=== PATIENT | female | born 1950 | race Caucasian/White ===

== ENCOUNTER 2017-04-07 11:00 | Emergency (ER) | payer MEDICARE ==
--- NOTE | 2017-04-07 13:07 | RAD ---
THREE VIEWS OF THE RIGHT HAND: DTAE: 04/07/17. COMPARISON: None. HISTORY: Fall, right hand pain, bruising. FINDINGS: There is prominent degenerative change involving the 2nd and 3rd distal interphalangeal joints with p rominent joint space narrowing and osteophyte formation. There is prominent degenerative change at t he carpometacarpal joint and the interphalangeal joint of the thumb as well. There is no displaced fracture or evidence of dislocation seen. There is soft tissue swelling seen a long the dorsal aspect of the hand near the region of the metacarpal heads. IMPRESSION: Soft tissue swelling, degenerative joint disease. No acute fracture or dislocation noted. POS: [facility]
--- NOTE | 2017-04-07 14:27 | CT ---
NONCONTRAST CT HEAD: DATE: 04/07/17. HISTORY: Head injury and right hand pain after falling yesterday. COMPARISON: None available. FINDINGS: There are scattered hypodensities seen throughout the periventricular white matter which are nonspeci fic but likely attributable to chronic small-vessel ischemic changes. There is no evidence of an acu te cortical infarction, hemorrhage, mass effect, or midline shift. There is cerebral volume loss wit h prominence of the bifrontal extraaxial spaces which is most likely attributable to volume loss. Th ere is mild cerebellar volume loss also present. No calvarial fracture is identified. Visualized paranasal sinuses and mastoid air cells are clear. There is osseous prominence of the inner table of the right anterior frontal bone. However, this ap pears contiguous with the diploic space and is probably related to an osseous excrescence as opposed to a calcified meningioma. IMPRESSION: 1. No acute intracranial abnormality is demonstrated. 2. Chronic small-vessel ischemic changes and cerebral as well as cerebellar volume loss. POS: [facility]
== END 2017-04-07 12:59 | disposition home or self-care (01) ==
LOC: ERS 11:00
DX: S60.221A Contusion of right hand, initial encounter (principal); S00.83XA Contusion of other part of head, initial encounter; K21.9 Gastro-esophageal reflux disease without esophagitis; E11.9 Type 2 diabetes mellitus without complications; E78.5 Hyperlipidemia, unspecified; Z79.82 Long term (current) use of aspirin; Z79.84 Long term (current) use of oral hypoglycemic drugs; Z79.899 Other long term (current) drug therapy; W10.9XXA Fall (on) (from) unspecified stairs and steps, initial encounter
CPT/HCPCS: 70450

== ENCOUNTER 2017-06-17 16:44 | Outpatient (CLI) | payer MEDICARE ==
--- NOTE | 2017-06-17 16:59 | RAD ---
PA AND LATERAL CHEST: History: Cough, congestion. IMPRESSION: No acute cardiopulmonary abnormality. The examination is not appreciably changed from a comparison da eric 09-20-14. POS: [facility]
== END 2017-06-17 16:45 | disposition home or self-care (01) ==
LOC: SCSRAD 16:44
PROVIDERS: ATTEND Nurse Practitioner Family
DX: J40 Bronchitis, not specified as acute or chronic (principal)
CPT/HCPCS: 71046

== ENCOUNTER 2017-07-02 10:10 | Outpatient (CLI) | payer MEDICARE | END 2017-07-02 10:11 | disposition home or self-care (01) | LOC: BICMAMMO 10:10 | PROVIDERS: ATTEND Internal Medicine Hematology & Oncology | DX: C50.919 Malignant neoplasm of unspecified site of unspecified female breast (principal); N95.9 Unspecified menopausal and perimenopausal disorder | CPT/HCPCS: 77080 ==

== ENCOUNTER 2017-10-18 23:51 | Emergency (ER) | payer MEDICARE ==
[2017-10-19 00:52] LABS: #Basophils 0.1 thou/uL (0.0-0.2); #Eosinphils 0.1 thou/uL (0.0-0.7); #Lymphocytes 2.2 thou/uL (1.20-3.40); #Monocytes 0.6 thou/uL (0.11-0.59); #Neutrophils 4.5 thou/uL (1.40-6.50); %Eosinophils 1.3 % (0.0-10.0); %Monocytes 7.9 % (0.0-10.0); %Neutrophils 60.8 % (42.0-75.0); Hemoglobin 14.4 g/dL (12.0-16.0); Mean Corpuscular HGB CONC 35.8 g/dL (32.0-36.0); Mean Corpuscular Hemoglobin 32.7 pg (27.0-31.0); Mean Corpuscular Volume 91.4 fl (81.0-99.0); Mean Platelet Volume 7.7 fL (7.4-10.4); Platelet Count 214 thou/uL (130-400); RBC Distribution Width 11.2 % (11.5-14.5); Red Blood Cell (RBC) Count 4.39 mill/uL (4.20-5.40); White Blood Cell (WBC) Count 7.4 thou/uL (4.8-10.8)
[2017-10-19 01:14] LABS: ALT (SGPT) 29 U/L (8-55); AST (SGOT) 21 U/L (5-34); Albumin 4.5 g/dL (3.4-4.8); Alkaline Phosphatase 70 U/L (40-150); Anion Gap 15 mmol/L (10-20); BUN (Urea Nitrogen) 20 mg/dL (9.8-20.1); Bilirubin, Total 0.3 mg/dL (0.2-1.2); CK (CPK) 75 U/L (29-168); Calc. Creatinine Clearance 0 mL/min (70-130); Calcium 10.8 mg/dL (7.8-10.44); Carbon Dioxide 24 mmol/L (23-31); Chloride 105 mmol/L (98-107); Estimated GFR-MDRD 61; Globulin 2.7 g/dL (2.4-3.5); Glucose 232 mg/dL (80-115); Potassium 4.1 mmol/L (3.5-5.1); Protein, Total 7.2 g/dL (6.0-8.3); Sodium 140 mmol/L (136-145)
[2017-10-19 01:24] LABS: CKMB 1.4 ng/mL (0-6.6); Troponin I Less than 0.010 ng/mL (< 0.028)
--- NOTE | 2017-10-19 09:42 | RAD ---
CHEST 2 VIEWS: HISTORY: Chest pain. COMPARISON: 06/17/17. FINDINGS: Cardiac silhouette and pulmonary vasculature are unremarkable. Mediastinum midline. No lobar consol idation, pneumothorax, or pleural fluid. Degenerative changes thoracic spine. IMPRESSION: No active cardiopulmonary abnormalities are demonstrated. POS: [facility]
== END 2017-10-19 04:29 | disposition home or self-care (01) ==
LOC: ERS 23:51
DX: R00.2 Palpitations (principal); K21.9 Gastro-esophageal reflux disease without esophagitis; E78.5 Hyperlipidemia, unspecified; I10 Essential (primary) hypertension
CPT/HCPCS: 36415; 71046; 80053; 82550; 82553; 84484; 85025; 93005

== ENCOUNTER 2017-12-30 08:21 | Outpatient (CLI) | payer MEDICARE | END 2017-12-30 08:22 | disposition home or self-care (01) | LOC: BICMAMMO 08:21 | PROVIDERS: ATTEND Internal Medicine Hematology & Oncology | DX: Z08 Encounter for follow-up examination after completed treatment for malignant neoplasm (principal); Z85.3 Personal history of malignant neoplasm of breast; Z80.3 Family history of malignant neoplasm of breast | CPT/HCPCS: 77066; G0279 ==

== ENCOUNTER 2019-04-04 09:13 | Emergency (ER) | payer MEDICARE ==
[2019-04-04 10:01] LABS: #Eosinphils 0.1 thou/uL (0.0-0.7); #Lymphocytes 1.8 thou/uL (1.20-3.40); #Monocytes 0.4 thou/uL (0.11-0.59); #Neutrophils 3.1 thou/uL (1.40-6.50); %Basophils 0.8 % (0.0-1.0); %Eosinophils 1.9 % (0.0-10.0); %Monocytes 6.7 % (0.0-10.0); %Neutrophils 57.6 % (42.0-75.0); Hemoglobin 13.4 g/dL (12.0-16.0); Mean Corpuscular HGB CONC 34.1 g/dL (32.0-36.0); Mean Corpuscular Hemoglobin 31.8 pg (27.0-31.0); Mean Corpuscular Volume 93.4 fL (78.0-98.0); Mean Platelet Volume 8.1 fL (7.4-10.4); Platelet Count 224 thou/uL (130-400); RBC Distribution Width 11.3 % (11.5-14.5); Red Blood Cell (RBC) Count 4.21 mill/uL (4.20-5.40); White Blood Cell (WBC) Count 5.4 thou/uL (4.8-10.8)
[2019-04-04 10:09] LABS: INR-International Normal Ratio 0.9; PTT 27.8 SEC (22.9-36.1); Prothrombin Time 12.3 SEC (12.0-14.7)
--- NOTE | 2019-04-04 10:10 | CT ---
EXAM: CT abdomen and pelvis without IV contrast PROVIDED CLINICAL HISTORY: Hematuria and left flank pain COMPARISON: None FINDINGS: The visualized lung bases are free of significant opacity. The solid abdominal organs demonstrate an unremarkable unenhanced CT appearance. No evidence for urin lanny tract calculi or hydronephrosis. There is no bowel dilatation, inflammatory fat stranding, free fluid or free air apparent. There is n o evidence for appendicitis. No regional lymph node enlargement apparent. The osseous structures demonstrate no concerning lytic o r blastic lesions. IMPRESSION: No evidence for urinary tract calculi or hydronephrosis.
[2019-04-04 10:16] LABS: ALT (SGPT) 21 U/L (8-55); AST (SGOT) 15 U/L (5-34); Albumin 4.3 g/dL (3.4-4.8); Alkaline Phosphatase 63 U/L (40-110); Anion Gap 11 mmol/L (10-20); BUN (Urea Nitrogen) 14 mg/dL (9.8-20.1); Bilirubin, Total 0.4 mg/dL (0.2-1.2); Calc. Creatinine Clearance 0 mL/min (70-130); Calcium 10.4 mg/dL (7.8-10.44); Carbon Dioxide 27 mmol/L (23-31); Chloride 106 mmol/L (98-107); Estimated GFR-MDRD 69; Globulin 2.3 g/dL (2.4-3.5); Glucose 142 mg/dL (83-110); Protein, Total 6.6 g/dL (6.0-8.3); Sodium 140 mmol/L (136-145)
[2019-04-04 10:43] LABS: Bacteria/HPF 3+ HPF (None Seen); Bilirubin Negative (Negative); Blood, Urine 3+ (Negative); Clarity Clear (Clear); Glucose, Urine (Dipstick) 200 mg/dL (Negative); Leukocyte 75 Leu/uL (Negative); Nitrite Negative (Negative); Protein, Urine (Dipstick) Negative (Neg-Trace); RBC/HPF 21-50 HPF (0-3); Squamous Epithelial 0-3 HPF (0-3); Urobilinogen Normal mg/dL (Less than 2)
== END 2019-04-04 11:11 | disposition home or self-care (01) ==
LOC: ERS 09:13
DX: N39.0 Urinary tract infection, site not specified (principal); R31.9 Hematuria, unspecified; K21.9 Gastro-esophageal reflux disease without esophagitis; E11.9 Type 2 diabetes mellitus without complications; E78.5 Hyperlipidemia, unspecified; E78.00 Pure hypercholesterolemia, unspecified; I10 Essential (primary) hypertension; I48.91 Unspecified atrial fibrillation; Z79.82 Long term (current) use of aspirin; Z79.84 Long term (current) use of oral hypoglycemic drugs; Z79.899 Other long term (current) drug therapy
CPT/HCPCS: 36415; 74176; 80053; 81003; 81015; 85025; 85610; 85730

== ENCOUNTER 2019-06-23 09:42 | Outpatient (CLI) | payer MEDICARE ==
--- NOTE | 2019-06-23 10:03 | RAD ---
XR Chest Pa Lat @ [facility] HISTORY: Dyspnea COMPARISON: 10/19/2017 FINDINGS: The heart size is normal. The lungs are well expanded without focal areas of consolidation, pneumothorax or pleural effusions. There are degenerative changes in the spine. IMPRESSION: No radiographic evidence of acute cardiopulmonary process.
== END 2019-06-23 09:43 | disposition home or self-care (01) ==
LOC: RAD 09:42
PROVIDERS: ATTEND Internal Medicine Critical Care Medicine
DX: R06.00 Dyspnea, unspecified (principal)
CPT/HCPCS: 71046

== ENCOUNTER 2019-09-26 20:33 | Inpatient (IN) | payer MEDICARE, OTHER ==
[2019-09-26] MEDS ORDERED: Ondansetron PF 4 MG/2 ML Vial ONE (20:52)
[2019-09-26] MEDS ORDERED: Ibuprofen 200 MG TAB ONE (20:54)
[2019-09-26 21:23] LABS: #Lymphocytes 1.2 thou/uL (1.20-3.40); #Monocytes 0.7 thou/uL (0.11-0.59); #Neutrophils 5.9 thou/uL (1.40-6.50); %Basophils 0.6 % (0.0-1.0); %Eosinophils 0.1 % (0.0-10.0); %Lymphocytes 15.2 % (21.0-51.0); %Monocytes 8.4 % (0.0-10.0); %Neutrophils 75.7 % (42.0-75.0); Hemoglobin 12.5 g/dL (12.0-16.0); Mean Corpuscular HGB CONC 33.8 g/dL (32.0-36.0); Mean Corpuscular Volume 94.9 fL (78.0-98.0); Mean Platelet Volume 8.3 fL (7.4-10.4); Platelet Count 209 thou/uL (130-400); RBC Distribution Width 11.4 % (11.5-14.5); Red Blood Cell (RBC) Count 3.91 mill/uL (4.20-5.40); White Blood Cell (WBC) Count 7.8 thou/uL (4.8-10.8)
--- NOTE | 2019-09-26 21:28 | RAD ---
SINGLE VIEW OF THE CHEST: 09/26/19 COMPARISON: 02/05/15, 06/23/19. HISTORY: Fever and weakness. FINDINGS: Single view of the chest shows normal sized cardiomediastinal silhouette. Scarring is seen in the lef t lung base. There is a questionable infiltrate in the left lung base adjacent to the area of scarrin g. This area is slightly more prominent than on the prior exam. There may be a small left pleural eff usion. IMPRESSION: Possible left basilar infiltrate. POS: [facility]
[2019-09-26 21:39] LABS: ALT (SGPT) 16 U/L (8-55); AST (SGOT) 17 U/L (5-34); Albumin 3.8 g/dL (3.4-4.8); Alkaline Phosphatase 69 U/L (40-110); Anion Gap 14 mmol/L (10-20); BUN (Urea Nitrogen) 16 mg/dL (9.8-20.1); Bilirubin, Total 0.7 mg/dL (0.2-1.2); Calc. Creatinine Clearance 0 mL/min (70-130); Calcium 10.1 mg/dL (7.8-10.44); Carbon Dioxide 21 mmol/L (23-31); Chloride 100 mmol/L (98-107); Estimated GFR-MDRD 73; Globulin 3.1 g/dL (2.4-3.5); Glucose 151 mg/dL (83-110); Lipase 17 U/L (8-78); Potassium 3.9 mmol/L (3.5-5.1); Protein, Total 6.9 g/dL (6.0-8.3); Sodium 131 mmol/L (136-145)
[2019-09-26] MEDS ORDERED: cefTRIAXone\\ROCEPHIN 2 GM VIAL ONE (21:56)
[2019-09-26] MEDS ORDERED: Azithromycin 500 MG VIAL ONE (21:56)
--- NOTE | 2019-09-26 22:28 | PDOC.HHP ---
Hospitalist HPI - History of Present Illness Shortness of breath History of Present Illness: Patient is a 69 year old female with PMH HTN, hyperlipidemia, atrial fibrillation, breast cancer w/ lumpectomy and radiation, DM who presents to ED via EMS for 5 days fever, nausea, vomiting, diarrhea. patient had a covid/flu screening test 3-4 days ago which was negative. In ED febrile to 101-102, sats 90% on RA placed on O2 w/ improvement to 96, flu/johansen collected and pending. Chest X ray prelim read in ED w/ LLL consolidation. Na 131. Patient admitted for presumed pneumonia and covid rule out. Hospitalist ROS - Review of Systems Constitutional: reports: fever, chills, weakness, malaise Eyes: denies: pain, vision change, conjunctivae inflammation, eyelid inflammation, redness, other ENT: denies: ear pain, ear discharge, nose pain, nose discharge, nose congestion , mouth pain, mouth swelling, throat pain, throat swelling, other Respiratory: reports: cough, shortness of breath Cardiovascular: denies: chest pain, palpitations, orthopnea, paroxysmal noc. dyspnea, edema, light headedness, other Gastrointestinal: reports: nausea, vomiting, diarrhea Hospitalist History - Past Medical History Other Medical History: HTN, hyperlipidemia, atrial fibrillation, breast cancer w/ lumpectomy and radiation, DM - Past Surgical History Other Surgical History: RT KNEE REPLACEMENT 210, TUMOR REMOVAL LT BREAST-BENIGN, Surgical history of appendectomy. Lumpectomy to right breast. - Family History Family History: reports: no pertinent history - Social History Smoking Status: Never smoker Alcohol: reports: None Drugs: reports: none - Exam General Appearance: NAD, awake alert Eye: PERRL, anicteric sclera ENT: normocephalic atraumatic, no oropharyngeal lesions, moist mucosa Neck: supple, symmetric, no JVD, no thyromegaly, no lymphadenopathy, no carotid bruit Heart: RRR, no murmur, no gallops, no rubs, normal peripheral pulses Respiratory: CTAB, no wheezes, no ronchi, normal chest expansion, no tachypnea, normal percussion, rales Gastrointestinal: soft, non-tender, non-distended, normal bowel sounds, no palpable masses, no hepatomegaly, no splenomegaly, no bruit Extremities: no cyanosis, no clubbing, no edema Skin: normal turgor, no lesions, no rashes Neurological: cranial nerve grossly intact, normal sensation to touch, no weakness, no focal deficits, no new deficit Musculoskeletal: normal tone, normal strength, no muscle wasting Psychiatric: normal affect, normal behavior, A&O x 3 Hospitalist Results - Labs Result Diagrams: 09/26/19 21:10 09/26/19 21:10 Lab results: WBC 7.8 thou/uL (4.8-10.8) 09/26/19 21:10 Hgb 12.5 g/dL (12.0-16.0) 09/26/19 21:10 Hct 37.1 % (36.0-47.0) 09/26/19 21:10 MCV 94.9 fL (78.0-98.0) 09/26/19 21:10 Plt Count 209 thou/uL (130-400) 09/26/19 21:10 Neutrophils % 75.7 % (42.0-75.0) H 09/26/19 21:10 Sodium 131 mmol/L (136-145) L 09/26/19 21:10 Potassium 3.9 mmol/L (3.5-5.1) 09/26/19 21:10 Chloride 100 mmol/L (98-107) 09/26/19 21:10 Carbon Dioxide 21 mmol/L (23-31) L 09/26/19 21:10 BUN 16 mg/dL (9.8-20.1) 09/26/19 21:10 Creatinine 0.78 mg/dL (0.6-1.1) 09/26/19 21:10 Glucose 151 mg/dL (83-110) H 09/26/19 21:10 Lactic Acid 0.9 mmol/L (0.5-2.2) 09/26/19 21:10 Calcium 10.1 mg/dL (7.8-10.44) 09/26/19 21:10 Total Bilirubin 0.7 mg/dL (0.2-1.2) 09/26/19 21:10 AST 17 U/L (5-34) 09/26/19 21:10 ALT 16 U/L (8-55) 09/26/19 21:10 Alkaline Phosphatase 69 U/L (40-110) 09/26/19 21:10 Troponin I 0.024 ng/mL (< 0.028) 09/26/19 21:10 B-Natriuretic Peptide 20.1 pg/mL (0-100) 09/26/19 21:10 Serum Total Protein 6.9 g/dL (6.0-8.3) 09/26/19 21:10 Albumin 3.8 g/dL (3.4-4.8) 09/26/19 21:10 Lipase 17 U/L (8-78) 09/26/19 21:10 Additional comment: VITAL SIGNS Sat September 26, 2019 20:33 MEETA Chadwick Emily BP: 153/70 Pulse: 93 Resp: 19 Temp: 102.4 (Oral) Pain: 0 O2 sat: 91 on (Room Air) Time: 09/26/2019 20:33. VITAL SIGNS Sat September 26, 2019 20:49 MEETA Chadwick Emily O2 sat: 95 on (2L Oxygen) Time: 09/26/2019 20:49. VITAL SIGNS Sat September 26, 2019 22:31 MEETA Chadwick Emily BP: 122/58 Pulse: 68 Resp: 20 Temp: 99.2 (Oral) Pain: 0 O2 sat: 95 on (2L Oxygen) Time: 09/26/2019 22:31. VITAL SIGNS Sat September 26, 2019 21:00 MEETA Chadwick Emily BP: 136/67 Pulse: 83 Resp: 20 O2 sat: 95 on (2L Oxygen) Time: 09/26/2019 21:00. Hospitalist H&P A/P - Plan Plan: Patient is a 69 year old female with PMH HTN, hyperlipidemia, atrial fibrillation, breast cancer w/ lumpectomy and radiation, DM who presents to ED via EMS for 5 days fever, nausea, vomiting, diarrhea admitted for LLL consolidation on CXR and covid rule out. # pneumonia - likely bacterial given recent negative covid/flu test. rechecking covid now - admit to floor - continue azithromcyin/ceftriaxone - O2 low normal, wean O2 based on symptoms. - follow up covid and flu rule out - will order legioniella and pneumococcal screen given hyponatremia and start on IVF # hyponatremia - likely due to hypovolemia and sepsis, treat as above # sepsis due to pneumonia - treat as above, follow cultures # DM - SSI resume home meds # HTN - resume home meds, PRNs in chart # atrial fibrillation - continue home meds, telemetry # history of breast cancer - outpatient follow up recommended, had lumpectomy and radiation # HLD - reusme home meds DVT ppx GI ppx
[2019-09-26 22:47] LABS: Bacteria/HPF 4+ HPF (None Seen); Bilirubin Negative (Negative); Blood, Urine Negative (Negative); Clarity Clear (Clear); Glucose, Urine (Dipstick) 50 mg/dL (Negative); Leukocyte 250 Leu/uL (Negative); Mucous/LPF Rare LPF (<2+); Nitrite 2+ (Negative); Protein, Urine (Dipstick) 30 mg/dL (Neg-Trace); RBC/HPF 0-3 HPF (0-3); Squamous Epithelial 0-3 HPF (0-3); WBC/HPF 21-50 HPF (0-3)
[2019-09-26] MEDS ORDERED: HYDROcodone/Acetaminophen 5/325 mg Tablet PO PRN ×2 (23:58)
[2019-09-26] MEDS ORDERED: Acetaminophen 325 MG TAB PO PRN (23:58)
[2019-09-26] MEDS ORDERED: Ondansetron PF 4 MG/2 ML Vial IVP PRN (23:58)
[2019-09-26] MEDS ORDERED: Ondansetron ODT 4 MG TAB SL PRN (23:58)
[2019-09-27] MEDS ORDERED: Morphine 2 MG/ML SYRINGE SLOW IVP PRN (01:30)
[2019-09-27] MEDS ORDERED: HYDROcodone/Acetaminophen 5/325 mg Tablet PO PRN (01:30)
[2019-09-27] MEDS ORDERED: Labetalol HCl 100 MG/20 ML VIAL SLOW IVP PRN (01:30)
[2019-09-27] MEDS ORDERED: Ondansetron PF 4 MG/2 ML Vial IVP PRN (01:30)
[2019-09-27] MEDS ORDERED: cloNIDine 0.1 MG TAB PO PRN (01:30)
[2019-09-27] MEDS ORDERED: Promethazine HCl 12.5 MG in Sodium Chloride 0.9% 50 ML IVPB PRN (01:30)
[2019-09-27] MEDS ORDERED: Dextrose 5% in Water 1,000 ML IV PRN (01:42)
[2019-09-27] MEDS ORDERED: Dextrose 50% Abboject 50 ML SYRINGE SLOW IVP PRN (01:42)
[2019-09-27] MEDS ORDERED: HumaLOG 300 UNITS/3 ML VIAL SC PRN (01:42)
[2019-09-27] MEDS: Sodium Chloride 0.9% 1,000 ML IV SCH ×5 (02:02→23:28)
[2019-09-27 05:18] LABS: #Eosinphils 0.1 thou/uL (0.0-0.7); #Lymphocytes 1.6 thou/uL (1.20-3.40); #Monocytes 0.7 thou/uL (0.11-0.59); %Basophils 0.4 % (0.0-1.0); %Eosinophils 1.3 % (0.0-10.0); %Lymphocytes 24.2 % (21.0-51.0); %Monocytes 11.5 % (0.0-10.0); %Neutrophils 62.6 % (42.0-75.0); Hemoglobin 11.8 g/dL (12.0-16.0); Mean Corpuscular HGB CONC 33.1 g/dL (32.0-36.0); Mean Corpuscular Hemoglobin 31.7 pg (27.0-31.0); Mean Platelet Volume 8.4 fL (7.4-10.4); Platelet Count 178 thou/uL (130-400); RBC Distribution Width 11.5 % (11.5-14.5); Red Blood Cell (RBC) Count 3.73 mill/uL (4.20-5.40); White Blood Cell (WBC) Count 6.4 thou/uL (4.8-10.8)
[2019-09-27 05:40] LABS: Anion Gap 13 mmol/L (10-20); BUN (Urea Nitrogen) 17 mg/dL (9.8-20.1); Calc. Creatinine Clearance 92 mL/min (70-130); Calcium 9.5 mg/dL (7.8-10.44); Carbon Dioxide 21 mmol/L (23-31); Chloride 107 mmol/L (98-107); Estimated GFR-MDRD 79; Glucose 117 mg/dL (83-110); Magnesium 1.8 mg/dL (1.6-2.6); Potassium 3.5 mmol/L (3.5-5.1); Sodium 137 mmol/L (136-145)
[2019-09-27 06:06] LABS: Legionella Urinary Ag Negative (Negative)
[2019-09-27 06:07] LABS: Strep pneumo Urine Ag NEGATIVE (NEGATIVE)
[2019-09-27] MEDS: Atenolol 25 MG TAB PO SCH ×2 (08:07→20:56)
[2019-09-27] MEDS: Aspirin 81 mg Enteric Coated Tablet PO SCH (08:07)
[2019-09-27] MEDS: Glimepiride 2 MG TAB PO SCH (08:07)
[2019-09-27] MEDS: Enoxaparin Sodium 40 MG/0.4 ML SYRINGE SC SCH (08:08)
[2019-09-27] MEDS: Atorvastatin Calcium 20 MG TAB PO SCH (08:08)
[2019-09-27] MEDS: Losartan 25 MG TAB PO SCH (08:08)
[2019-09-27] MEDS: Polyethylene Glycol 3350 17 GM Packet PO SCH (08:08)
[2019-09-27] MEDS: Flecainide 50 MG TAB PO SCH ×2 (08:08→20:56)
[2019-09-27] MEDS: Famotidine 20 MG TAB PO SCH ×2 (08:08→20:56)
[2019-09-27] MEDS: Azithromycin 250 MG TAB PO SCH (08:08)
[2019-09-27] MEDS: Acetaminophen 325 MG TAB PO PRN ×3 (08:26→23:31)
--- NOTE | 2019-09-27 13:10 | PDOC.HOSPP ---
- Subjective Encounter Date: 09/27/19 Encounter Time: 11:40 Subjective: doing well, admitted w.. LLL PNA. episode of temp this am. - Objective Vital Signs & Weight: Vital Signs (12 hours) Temp Pulse Resp BP Pulse Ox 09/27/19 11:47 98.7 F 84 20 134/76 94 L 09/27/19 08:30 101.2 F H 94 20 171/77 H 92 L 09/27/19 08:07 70 09/27/19 04:10 98.2 F 70 16 129/67 94 L Weight Weight 182 lb 8 oz I&O: 09/26/19 09/27/19 09/28/19 06:59 06:59 06:59 Intake Total 240 Output Total 800 Balance -560 Result Diagrams: 09/27/19 04:58 09/27/19 04:58 Additional Labs: Accuchecks 09/27/19 09/27/19 11:40 00:34 POC Glucose 194 H 177 H Hospitalist ROS - Medication Medications: Active Medications Generic Name Dose Route Start Last Admin Trade Name Freq PRN Reason Stop Dose Admin Acetaminophen 650 mg 09/27/19 01:30 09/27/19 08:26 Tylenol PO 650 mg Q4H PRN Administration Headache/Fever/Mild Pain (1-3) Aspirin 81 mg 09/27/19 09:00 09/27/19 08:07 Ecotrin PO 81 mg DAILY NATALY Administration Atenolol 12.5 mg 09/27/19 09:00 09/27/19 08:07 Tenormin PO 12.5 mg BID NATALY Administration Atorvastatin Calcium 20 mg 09/27/19 09:00 09/27/19 08:08 Lipitor PO 20 mg DAILY NATALY Administration Azithromycin 250 mg 09/27/19 09:00 09/27/19 08:08 Zithromax PO 09/30/19 09:01 250 mg DAILY NATALY Administration Enoxaparin Sodium 40 mg 09/27/19 09:00 09/27/19 08:08 Lovenox SC 40 mg 0900 NATALY Administration Famotidine 20 mg 09/27/19 09:00 09/27/19 08:08 Pepcid PO 20 mg BID NATALY Administration Flecainide Acetate 50 mg 09/27/19 09:00 09/27/19 08:08 Tambocor PO 50 mg BID NATALY Administration Glimepiride 2 mg 09/27/19 07:30 09/27/19 08:07 Amaryl PO 2 mg DAILY-AC NATALY Administration Sodium Chloride 1,000 mls @ 150 mls/hr 09/26/19 23:58 09/27/19 08:05 Normal Saline 0.9% IV 1,000 mls .Q6H40M NATALY Administration Losartan Potassium 50 mg 09/27/19 09:00 09/27/19 08:08 Cozaar PO 50 mg DAILY NATALY Administration Pantoprazole Sodium 40 mg 09/27/19 09:00 09/27/19 08:08 Protonix PO 40 mg QAM NATALY Administration Polyethylene Glycol 17 gm 09/27/19 09:00 09/27/19 08:08 Miralax PO 17 gm DAILY NATALY Administration Sodium Chloride 10 ml 09/26/19 23:58 09/27/19 02:02 Flush - Normal Saline IVF 10 ml PRN PRN Administration Saline Flush - Exam General Appearance: NAD, awake alert Eye: PERRL ENT: normocephalic atraumatic Neck: supple Heart: RRR Respiratory: CTAB, normal chest expansion Gastrointestinal: soft, normal bowel sounds Neurological: no focal deficits Hosp A/P - Plan pneumonia sepsis d/t above - negative covid/flu test. -fw on rechecking covid - - continue azithromcyin/ceftriaxone - O2 low normal, wean O2 based on symptoms. - follow up legioniella and pneumococcal screen given hyponatremia and start on IVF -no high wbcs # hyponatremia - likely due to hypovolemia and sepsis, -resolved # DM - SSI resume home meds # HTN - resume home meds, # atrial fibrillation - continue home meds, telemetry - BB, no AC. # history of breast cancer - outpatient follow up recommended, had lumpectomy and radiation full code.
[2019-09-27 16:42] LABS: SARS-CoV-2 MS2 Positive; SARS-CoV-2 N Gene Negative; SARS-CoV-2 S Gene Negative; SARS-CoV-2 orf1ab Negative
[2019-09-27] MEDS: cefTRIAXone\\ROCEPHIN 1 GM in Sodium Chloride 0.9% 100 ML IVPB SCH (21:29)
[2019-09-27] MEDS: hydrALAZINE 20 MG/ML VIAL SLOW IVP PRN (23:33)
[2019-09-28 04:47] LABS: #Eosinphils 0.1 thou/uL (0.0-0.7); #Lymphocytes 1.7 thou/uL (1.20-3.40); #Monocytes 0.7 thou/uL (0.11-0.59); #Neutrophils 3.1 thou/uL (1.40-6.50); %Basophils 0.7 % (0.0-1.0); %Eosinophils 1.8 % (0.0-10.0); %Monocytes 12.5 % (0.0-10.0); %Neutrophils 54.9 % (42.0-75.0); Hemoglobin 10.9 g/dL (12.0-16.0); Mean Corpuscular HGB CONC 33.5 g/dL (32.0-36.0); Mean Corpuscular Volume 95.5 fL (78.0-98.0); Mean Platelet Volume 8.3 fL (7.4-10.4); Platelet Count 194 thou/uL (130-400); RBC Distribution Width 11.4 % (11.5-14.5); Red Blood Cell (RBC) Count 3.39 mill/uL (4.20-5.40); White Blood Cell (WBC) Count 5.6 thou/uL (4.8-10.8)
[2019-09-28 05:13] LABS: Anion Gap 9 mmol/L (10-20); BUN (Urea Nitrogen) 10 mg/dL (9.8-20.1); Calc. Creatinine Clearance 89 mL/min (70-130); Calcium 9.3 mg/dL (7.8-10.44); Carbon Dioxide 24 mmol/L (23-31); Chloride 108 mmol/L (98-107); Estimated GFR-MDRD 75; Glucose 113 mg/dL (83-110); Magnesium 1.9 mg/dL (1.6-2.6); Potassium 3.7 mmol/L (3.5-5.1); Sodium 137 mmol/L (136-145)
[2019-09-28] MEDS: Sodium Chloride 0.9% 1,000 ML IV SCH ×3 (06:24→20:05)
[2019-09-28] MEDS: Glimepiride 2 MG TAB PO SCH (07:38)
[2019-09-28] MEDS: Aspirin 81 mg Enteric Coated Tablet PO SCH (09:42)
[2019-09-28] MEDS: Atorvastatin Calcium 20 MG TAB PO SCH (09:42)
[2019-09-28] MEDS: Atenolol 25 MG TAB PO SCH ×2 (09:42→22:08)
[2019-09-28] MEDS: Losartan 25 MG TAB PO SCH (09:43)
[2019-09-28] MEDS: Enoxaparin Sodium 40 MG/0.4 ML SYRINGE SC SCH (09:43)
[2019-09-28] MEDS: Famotidine 20 MG TAB PO SCH ×2 (09:43→22:07)
[2019-09-28] MEDS: Azithromycin 250 MG TAB PO SCH (09:43)
[2019-09-28] MEDS: Flecainide 50 MG TAB PO SCH ×2 (09:43→22:07)
[2019-09-28] MEDS: Polyethylene Glycol 3350 17 GM Packet PO SCH (09:44)
--- NOTE | 2019-09-28 12:53 | PDOC.HOSPP ---
- Subjective Encounter Date: 09/28/19 Encounter Time: 09:30 Subjective: covid neg., no fever,s till cough. congestion. - Objective Vital Signs & Weight: Vital Signs (12 hours) Temp Pulse Pulse Pulse Resp BP BP 09/28/19 11:24 98.2 F 61 16 09/28/19 09:42 78 09/28/19 09:40 71 70 118/64 159/74 H 09/28/19 08:59 70 69 136/63 141/66 H 09/28/19 07:29 98.2 F 78 18 09/28/19 03:50 98.3 F 67 17 BP Pulse Ox 09/28/19 11:24 133/63 94 L 09/28/19 09:42 09/28/19 09:40 09/28/19 08:59 09/28/19 07:29 133/58 L 94 L 09/28/19 03:50 118/64 94 L Weight Weight 182 lb 8 oz I&O: 09/27/19 09/28/19 09/29/19 06:59 06:59 06:59 Intake Total 4775 Output Total 2750 Balance 2024 Result Diagrams: 09/28/19 04:27 09/28/19 04:27 Additional Labs: Accuchecks 09/28/19 09/27/19 11:32 20:34 POC Glucose 125 H 141 H Hospitalist ROS - Medication Medications: Active Medications Generic Name Dose Route Start Last Admin Trade Name Freq PRN Reason Stop Dose Admin Acetaminophen 650 mg 09/27/19 01:30 09/27/19 23:31 Tylenol PO 650 mg Q4H PRN Administration Headache/Fever/Mild Pain (1-3) Aspirin 81 mg 09/27/19 09:00 09/28/19 09:42 Ecotrin PO 81 mg DAILY NATALY Administration Atenolol 12.5 mg 09/27/19 09:00 09/28/19 09:42 Tenormin PO 12.5 mg BID NATALY Administration Atorvastatin Calcium 20 mg 09/27/19 09:00 09/28/19 09:42 Lipitor PO 20 mg DAILY NATALY Administration Azithromycin 250 mg 09/27/19 09:00 09/28/19 09:43 Zithromax PO 09/30/19 09:01 250 mg DAILY NATALY Administration Enoxaparin Sodium 40 mg 09/27/19 09:00 09/28/19 09:43 Lovenox SC 40 mg 0900 NATALY Administration Famotidine 20 mg 09/27/19 09:00 09/28/19 09:43 Pepcid PO 20 mg BID NATALY Administration Flecainide Acetate 50 mg 09/27/19 09:00 09/28/19 09:43 Tambocor PO 50 mg BID NATALY Administration Glimepiride 2 mg 09/27/19 07:30 09/28/19 07:38 Amaryl PO 2 mg DAILY-AC NATALY Administration Hydralazine HCl 10 mg 09/27/19 01:30 09/27/19 23:33 Apresoline SLOW IVP 10 mg Q6H PRN Administration SBP GREATER THAN 160 Ceftriaxone Sodium 1 gm/ 100 mls @ 200 mls/hr 09/27/19 22:00 09/27/19 21:29 Sodium Chloride IVPB 09/30/19 22:29 100 mls Q24HR NATALY Administration Sodium Chloride 1,000 mls @ 150 mls/hr 09/26/19 23:58 09/28/19 06:24 Normal Saline 0.9% IV 1,000 mls .Q6H40M NATALY Administration Losartan Potassium 50 mg 09/27/19 09:00 09/28/19 09:43 Cozaar PO 50 mg DAILY NATALY Administration Pantoprazole Sodium 40 mg 09/27/19 09:00 09/28/19 09:43 Protonix PO 40 mg QAM NATALY Administration Polyethylene Glycol 17 gm 09/27/19 09:00 09/28/19 09:44 Miralax PO Not Given DAILY NATALY Sodium Chloride 10 ml 09/26/19 23:58 09/27/19 02:02 Flush - Normal Saline IVF 10 ml PRN PRN Administration Saline Flush - Exam General Appearance: NAD, awake alert Eye: PERRL ENT: normocephalic atraumatic Neck: supple Heart: RRR Respiratory: normal chest expansion, rales, rhonchi Gastrointestinal: soft, normal bowel sounds Neurological: no focal deficits Hosp A/P - Plan pneumonia sepsis d/t above - negative covid/flu test. -fw on rechecking covid - - continue azithromcyin/ceftriaxone - O2 low normal, wean O2 based on symptoms. - follow up legioniella and pneumococcal screen given hyponatremia and start on IVF -no high wbcs # hyponatremia - likely due to hypovolemia and sepsis, -resolved # DM - SSI resume home meds # HTN - resume home meds, # atrial fibrillation - continue home meds, telemetry - BB, no AC. # history of breast cancer - outpatient follow up recommended, had lumpectomy and radiation full code. --still has lots of congestion and coughing. --covid ruled out. -BD, anticough and cw abx.
[2019-09-28] MEDS: cefTRIAXone\\ROCEPHIN 1 GM in Sodium Chloride 0.9% 100 ML IVPB SCH (22:23)
[2019-09-29] MEDS ORDERED: Melatonin 3 MG TAB PO SCH (01:15)
[2019-09-29] MEDS: Sodium Chloride 0.9% 1,000 ML IV SCH ×3 (03:13→17:34)
[2019-09-29] MEDS: Guaifenesin DM 100-10/5 ML UDCUP PO PRN ×2 (03:23→15:51)
[2019-09-29 06:10] LABS: #Eosinphils 0.1 thou/uL (0.0-0.7); #Lymphocytes 1.5 thou/uL (1.20-3.40); #Monocytes 0.4 thou/uL (0.11-0.59); #Neutrophils 2.7 thou/uL (1.40-6.50); %Basophils 0.2 % (0.0-1.0); %Eosinophils 2.7 % (0.0-10.0); %Monocytes 8.6 % (0.0-10.0); %Neutrophils 57.5 % (42.0-75.0); Hemoglobin 10.5 g/dL (12.0-16.0); Mean Corpuscular HGB CONC 33.2 g/dL (32.0-36.0); Mean Corpuscular Hemoglobin 31.4 pg (27.0-31.0); Mean Corpuscular Volume 94.8 fL (78.0-98.0); Mean Platelet Volume 8.5 fL (7.4-10.4); Platelet Count 205 thou/uL (130-400); RBC Distribution Width 11.3 % (11.5-14.5); Red Blood Cell (RBC) Count 3.34 mill/uL (4.20-5.40); White Blood Cell (WBC) Count 4.7 thou/uL (4.8-10.8)
[2019-09-29 06:30] LABS: Anion Gap 13 mmol/L (10-20); BUN (Urea Nitrogen) 6 mg/dL (9.8-20.1); Calc. Creatinine Clearance 107 mL/min (70-130); Calcium 9.1 mg/dL (7.8-10.44); Carbon Dioxide 20 mmol/L (23-31); Chloride 110 mmol/L (98-107); Estimated GFR-MDRD 90; Glucose 139 mg/dL (83-110); Magnesium 1.9 mg/dL (1.6-2.6); Potassium 3.6 mmol/L (3.5-5.1); Sodium 139 mmol/L (136-145)
[2019-09-29] MEDS: Aspirin 81 mg Enteric Coated Tablet PO SCH (09:11)
[2019-09-29] MEDS: Atenolol 25 MG TAB PO SCH ×2 (09:11→20:33)
[2019-09-29] MEDS: Atorvastatin Calcium 20 MG TAB PO SCH (09:12)
[2019-09-29] MEDS: Famotidine 20 MG TAB PO SCH ×2 (09:12→20:33)
[2019-09-29] MEDS: Glimepiride 2 MG TAB PO SCH (09:12)
[2019-09-29] MEDS: Azithromycin 250 MG TAB PO SCH (09:12)
[2019-09-29] MEDS: Losartan 25 MG TAB PO SCH (09:12)
[2019-09-29] MEDS: Flecainide 50 MG TAB PO SCH ×2 (09:13→20:33)
[2019-09-29] MEDS: Polyethylene Glycol 3350 17 GM Packet PO SCH (09:16)
[2019-09-29] MEDS: Enoxaparin Sodium 40 MG/0.4 ML SYRINGE SC SCH (09:16)
[2019-09-29] MEDS: methylPREDNISolone Sod Succ 40 MG VIAL IVP SCH (09:17)
--- NOTE | 2019-09-29 13:28 | PDOC.HOSPP ---
- Subjective Encounter Date: 09/29/19 Encounter Time: 09:20 Subjective: getting breathing tx; more cough and feels 'clearing up' several episodes of diarrhea - Objective Vital Signs & Weight: Vital Signs (12 hours) Temp Pulse Resp BP BP Pulse Ox 09/29/19 12:38 148/70 H 09/29/19 11:23 98.3 F 65 18 183/84 H 94 L 09/29/19 11:21 63 20 99 09/29/19 07:43 76 18 99 09/29/19 07:36 99 09/29/19 07:17 98.3 F 69 18 144/71 H 93 L 09/29/19 03:10 98.4 F 69 18 176/79 H 95 Weight Admit Weight 182 lb 8 oz Weight 188 lb 4.8 oz I&O: 09/28/19 09/29/19 09/30/19 06:59 06:59 06:59 Intake Total 4775 1320 525 Output Total 2750 3250 900 Balance 2024 Result Diagrams: 09/29/19 05:46 09/29/19 05:46 Additional Labs: Accuchecks 09/29/19 09/28/19 09/28/19 10:45 20:42 17:12 POC Glucose 144 H 152 H 98 Hospitalist ROS - Medication Medications: Active Medications Generic Name Dose Route Start Last Admin Trade Name Freq PRN Reason Stop Dose Admin Acetaminophen 650 mg 09/27/19 01:30 09/27/19 23:31 Tylenol PO 650 mg Q4H PRN Administration Headache/Fever/Mild Pain (1-3) Albuterol/Ipratropium 3 ml 09/28/19 15:00 09/29/19 11:21 Duoneb NEB 3 ml [id number] NATALY Administration Aspirin 81 mg 09/27/19 09:00 09/29/19 09:11 Ecotrin PO 81 mg DAILY NATALY Administration Atenolol 12.5 mg 09/27/19 09:00 09/29/19 09:11 Tenormin PO 12.5 mg BID NATALY Administration Atorvastatin Calcium 20 mg 09/27/19 09:00 09/29/19 09:12 Lipitor PO 20 mg DAILY NATALY Administration Enoxaparin Sodium 40 mg 09/27/19 09:00 09/29/19 09:16 Lovenox SC 40 mg 0900 NATALY Administration Famotidine 20 mg 09/27/19 09:00 09/29/19 09:12 Pepcid PO 20 mg BID NATALY Administration Flecainide Acetate 50 mg 09/27/19 09:00 09/29/19 09:13 Tambocor PO 50 mg BID NATALY Administration Glimepiride 2 mg 09/27/19 07:30 09/29/19 09:12 Amaryl PO 2 mg DAILY-AC NATALY Administration Guaifenesin/Dextromethorphan 15 ml 09/27/19 01:30 09/29/19 03:23 Robitussin Dm PO 15 ml Q4H PRN Administration Cough Hydralazine HCl 10 mg 09/27/19 01:30 09/27/19 23:33 Apresoline SLOW IVP 10 mg Q6H PRN Administration SBP GREATER THAN 160 Sodium Chloride 1,000 mls @ 150 mls/hr 09/26/19 23:58 09/29/19 09:30 Normal Saline 0.9% IV 1,000 mls .Q6H40M NATALY Administration Losartan Potassium 50 mg 09/27/19 09:00 09/29/19 09:12 Cozaar PO 50 mg DAILY NATALY Administration Methylprednisolone Sodium Succinate 60 mg 09/29/19 09:00 09/29/19 09:17 Solu-Medrol IVP 60 mg DAILY NATALY Administration Pantoprazole Sodium 40 mg 09/27/19 09:00 09/29/19 09:12 Protonix PO 40 mg QAM NATALY Administration Polyethylene Glycol 17 gm 09/27/19 09:00 09/29/19 09:16 Miralax PO Not Given DAILY NATALY Sodium Chloride 10 ml 09/26/19 23:58 09/27/19 02:02 Flush - Normal Saline IVF 10 ml PRN PRN Administration Saline Flush - Exam General Appearance: NAD, awake alert Eye: PERRL, anicteric sclera ENT: normocephalic atraumatic Neck: supple Heart: RRR Respiratory: CTAB, normal chest expansion Gastrointestinal: soft, normal bowel sounds Neurological: no focal deficits Psychiatric: normal affect, normal behavior, A&O x 3 Hosp A/P - Plan pneumonia sepsis d/t above - negative covid/flu test. -fw on rechecking covid - - continue azithromcyin/ceftriaxone - O2 low normal, wean O2 based on symptoms. - follow up legioniella and pneumococcal screen given hyponatremia and start on IVF -no high wbcs # hyponatremia - likely due to hypovolemia and sepsis, -resolved # DM - SSI resume home meds # HTN - resume home meds, # atrial fibrillation - continue home meds, telemetry - BB, no AC. # history of breast cancer - outpatient follow up recommended, had lumpectomy and radiation full code. --still has lots of congestion and coughing. --covid ruled out. -BD, anticough and cw abx. prob abx induced diarrhea -r/o cdiff Ecoli uti sens FQ - dc iv abx and switched to LQ to cvr for PNA nad UTI if cdiff -ve, and less BMs, clinical improvement, plan for dc tomorrow.
[2019-09-29] MEDS: Acetaminophen 325 MG TAB PO PRN (15:51)
[2019-09-29] MEDS: hydrALAZINE 20 MG/ML VIAL SLOW IVP PRN (16:38)
[2019-09-30 03:32] VITALS: BMI 29.0
[2019-09-30] MEDS: methylPREDNISolone Sod Succ 40 MG VIAL IVP SCH (09:55)
[2019-09-30] MEDS: Atenolol 25 MG TAB PO SCH (09:56)
[2019-09-30] MEDS: Enoxaparin Sodium 40 MG/0.4 ML SYRINGE SC SCH (09:56)
[2019-09-30] MEDS: Atorvastatin Calcium 20 MG TAB PO SCH (09:57)
[2019-09-30] MEDS: Aspirin 81 mg Enteric Coated Tablet PO SCH (09:57)
[2019-09-30] MEDS: Glimepiride 2 MG TAB PO SCH (09:57)
[2019-09-30] MEDS: Polyethylene Glycol 3350 17 GM Packet PO SCH (09:57)
[2019-09-30] MEDS: Flecainide 50 MG TAB PO SCH (09:57)
[2019-09-30] MEDS: Losartan 25 MG TAB PO SCH (09:57)
[2019-09-30] MEDS: Famotidine 20 MG TAB PO SCH (09:57)
[2019-09-30 11:14] VITALS: TEMP 97.8
[2019-09-30 13:01] VITALS: BP 160/80
--- NOTE | 2019-09-30 15:27 | EKG ---
Test Reason : Blood Pressure : / mmHG Vent. Rate : 082 BPM Atrial Rate : 082 BPM P-R Int : 212 ms QRS Dur : 074 ms QT Int : 346 ms P-R-T Axes : 036 -25 038 degrees QTc Int : 404 ms Sinus rhythm with 1st degree A-V block Inferior infarct , age undetermined Anterior infarct , age undetermined Left axis deviation Q III Abnormal ECG Confirmed by MINNIE JONES, DUSTY Frost ([id number]), news video editor SY MARK ([id number]) on 09/30/2019 3:26:50 PM Referred By: Confirmed By:DUSTY HARTMAN MD
--- NOTE | 2019-10-01 09:35 | DIS ---
DATE OF ADMISSION: 09/27/2019 DATE OF DISCHARGE: 09/30/2019 DISCHARGE DIAGNOSES: 1. Escherichia coli urinary tract infection, sensitive to fluoroquinolone. 2. Sepsis secondary to pneumonia. 3. Hyponatremia due to hypovolemia and sepsis that is resolved. 4. Type 2 diabetes mellitus. 5. Atrial fibrillation, on rate control with Lopressor, but not on anticoagulation. 6. Hypertension. 7. History of breast cancer, status post lumpectomy and radiation. DISCHARGE MEDICATIONS: 1. Levaquin 750 mg daily for 7 days. 2. Guaifenesin cough suppressant q.4 hours as needed 15 mL p.o. for 7 days. 3. Metformin 500 mg twice a day. 4. Multivitamin. 5. Benicar 20 mg daily. 6. Protonix 40 mg daily. 7. Coenzyme Q10 of 100 mg daily. 8. Glimepiride 2 mg daily. 9. Flecainide 50 mg twice a day. 10. Vitamin D3 of 125 mcg daily. 11. Cetirizine 10 mg daily. 12. Lipitor 20 mg daily. 13. Atenolol 12.5 mg twice a day. 14. Aspirin 81 mg daily. PHYSICAL EXAMINATION: VITAL SIGNS: On the day of discharge, the patient is afebrile. Temperature is 97.8, pulse 57, blood pressure 160/80. She is saturating well in room air in the upper 90s. GENERAL: She states that her diarrhea is actually loose bowel, not watery. This is usual for her in the morning to have two loose bowel movements. Otherwise, she is getting a breathing treatment this morning. She feels much better and quite anxious to go home . CARDIOVASCULAR: Regular rate and rhythm without murmurs, rubs, or gallops. LUNGS: Clear to auscultation bilaterally without wheezing, rales, or rhonchi. ABDOMEN: Soft, nontender, nondistended. Good bowel sounds. EXTREMITIES: Without any pitting edema. LABORATORY DATA: E coli UTI sensitive to fluoroquinolone. she has no white count elevation. Her creatinine was 0.65. Her latest blood glucose 146 prior to discharge. HOSPITAL COURSE: A 69-year-old female presented with sepsis secondary to pneumonia. She is ruled out for COVID. She was started on ceftriaxone and Zithromax for pneumonia. She also had urinary tract infection, and the urine culture grew E coli sensitive to fluoroquinolone. She is switched from IV antibiotics to p.o. Levaquin to cover for pneumonia as well as UTI. The patient clinically improved to a level that she is ready to go home today. DISCHARGE INSTRUCTION: Activity as tolerated. Healthy heart diet. Follow up with the primary care physician in one week. Discharge time took over 30 minutes. Job ID: [id number] MTDD
== END 2019-09-30 13:11 | disposition home or self-care (01) | DRG 871 ==
LOC: ERS 20:33 → 2SW 09-27 00:02
PROVIDERS: ADMIT Internal Medicine; ATTEND Internal Medicine
PROC: 8E0ZXY6 Isolation (ICD-10-PCS; principal; 2019-09-29)
DX: A41.9 Sepsis, unspecified organism (principal); J18.9 Pneumonia, unspecified organism; E87.1 Hypo-osmolality and hyponatremia; N39.0 Urinary tract infection, site not specified; K52.1 Toxic gastroenteritis and colitis; Z20.828 Contact with and (suspected) exposure to other viral communicable diseases; E11.9 Type 2 diabetes mellitus without complications; I10 Essential (primary) hypertension; E86.1 Hypovolemia; I48.91 Unspecified atrial fibrillation; E78.5 Hyperlipidemia, unspecified; Z96.651 Presence of right artificial knee joint; K21.9 Gastro-esophageal reflux disease without esophagitis; E78.00 Pure hypercholesterolemia, unspecified; B96.20 Unspecified Escherichia coli [E. coli] as the cause of diseases classified elsewhere; T36.95XA Adverse effect of unspecified systemic antibiotic, initial encounter; Z85.3 Personal history of malignant neoplasm of breast; Z92.3 Personal history of irradiation; Z90.49 Acquired absence of other specified parts of digestive tract; Z79.899 Other long term (current) drug therapy; Z79.84 Long term (current) use of oral hypoglycemic drugs
CPT/HCPCS: 36415; 36416; 71045; 80048; 80053; 81003; 81015; 83605; 83690; 83735; 83880; 84484; 85025; 87040; 87077; 87086; 87186; 87449; 87635; 87804; 87899; 93005; 94640; 96361; 96365; 96367; 96375; J0360; J0456; J0696; J1650; J2405; J2920; J3490; J7620; U0003

== ENCOUNTER 2019-10-14 14:52 | Inpatient (IN) | payer MEDICARE, OTHER ==
[~2019-10-14 14:52] MED LIST: Iopamidol-370 76% 500 ML 1 ML ONE
[2019-10-14] MEDS ORDERED: Ondansetron PF 4 MG/2 ML Vial ONE (15:34)
[2019-10-14 15:50] LABS: #Monocytes 0.3 thou/uL (0.11-0.59); #Neutrophils 2.4 thou/uL (1.40-6.50); %Basophils 0.2 % (0.0-1.0); %Lymphocytes 27.4 % (21.0-51.0); %Monocytes 8.5 % (0.0-10.0); %Neutrophils 62.8 % (42.0-75.0); Hemoglobin 11.2 g/dL (12.0-16.0); Mean Corpuscular HGB CONC 32.4 g/dL (32.0-36.0); Mean Corpuscular Hemoglobin 30.9 pg (27.0-31.0); Mean Corpuscular Volume 95.5 fL (78.0-98.0); Mean Platelet Volume 8.8 fL (7.4-10.4); Platelet Count 174 thou/uL (130-400); Red Blood Cell (RBC) Count 3.62 mill/uL (4.20-5.40); White Blood Cell (WBC) Count 3.8 thou/uL (4.8-10.8)
[2019-10-14 16:13] LABS: ALT (SGPT) 28 U/L (8-55); AST (SGOT) 32 U/L (5-34); Albumin 3.4 g/dL (3.4-4.8); Alkaline Phosphatase 52 U/L (40-110); Anion Gap 12 mmol/L (10-20); BUN (Urea Nitrogen) 13 mg/dL (9.8-20.1); Bilirubin, Total 0.3 mg/dL (0.2-1.2); Calc. Creatinine Clearance 0 mL/min (70-130); Calcium 9.6 mg/dL (7.8-10.44); Carbon Dioxide 20 mmol/L (23-31); Chloride 105 mmol/L (98-107); Estimated GFR-MDRD 70; Globulin 2.8 g/dL (2.4-3.5); Glucose 79 mg/dL (83-110); Lipase 46 U/L (8-78); Potassium 4.2 mmol/L (3.5-5.1); Protein, Total 6.2 g/dL (6.0-8.3); Sodium 133 mmol/L (136-145)
--- NOTE | 2019-10-14 16:22 | RAD ---
EXAM: Two views chest PROVIDED CLINICAL HISTORY: Pneumonia, hypoxia. Weakness and dehydration. COMPARISON: 10/13/2019 FINDINGS: Cardiac silhouette and pulmonary vasculature are within normal limits. Mild persistent interstitial a nd mild patchy parenchymal airspace opacities are seen in the left lung base and to a much lesser extent at the right lung base. Vascular calcifications are seen in thoracic aorta. No other interval change. IMPRESSION: Persistent interstitial and patchy parenchymal airspace opacities in each lower lobe greater on the l eft. Findings again may be related to bibasilar pneumonia or viral pneumonitis in the correct clinical scenario. However, the more linear densities at the left lung base may be related to scarrin g as this area of linear density is present on study of 06/23/2019..
--- NOTE | 2019-10-14 16:35 | CT ---
CT PULMONARY ANGIOGRAM WITH IV CONTRAST AND 3D POSTPROCESSIN10/14/19 HISTORY: Dyspnea. FINDINGS: No filling defects are seen in the pulmonary arterial vasculature to suggest pulmonary embolism. The thoracic aorta is well opacified without aneurysmal dissection. No pleural or pericardial effusions a re seen. Prominent mediastinal lymph nodes are seen measuring up to 9 mm. There are patchy peripheral ground glass infiltrates with associated small areas of consolidation in the lower lobes. No pneumot horaces are seen. No pleural or pericardial effusions are identified. There are degenerative changes in the spine. IMPRESSION: 1. No CT evidence of pulmonary embolism. 2. Bilateral infiltrates. Recommend COVID-19 testing. POS: BERTO
[2019-10-14 16:44] LABS: Base Excess-Venous -2.7 mmol/L (-2.0 to 3.0); Bicarbonate (HCO3v) 21.9 mmol/L (22.0-28.0); CO2 Tension (PvCO2) 36.4 mmHg (40.0-50.0); Calcium, Ionized 1.25 mmol/L (See Comments:); Chloride 103 mmol/L (98-107); Hemoglobin - Calc 11.2 g/dL (12.0-16.0); Sodium 135 mmol/L (138-145); vO2 Saturation-calc 46.2 % (60.0-85.0)
[2019-10-14 16:56] LABS: Bilirubin Negative (Negative); Blood, Urine Negative (Negative); Clarity Clear (Clear); Glucose, Urine (Dipstick) Normal (Negative); Leukocyte Negative Leu/uL (Negative); Nitrite Negative (Negative); Protein, Urine (Dipstick) Negative (Neg-Trace); Urobilinogen Normal mg/dL (Less than 2)
[2019-10-14 20:05] VITALS: BMI 28.3
[2019-10-14] MEDS ORDERED: cloNIDine 0.1 MG TAB PO PRN (22:35)
[2019-10-14] MEDS ORDERED: Ondansetron PF 4 MG/2 ML Vial IVP PRN (22:35)
[2019-10-14] MEDS ORDERED: HYDROcodone/Acetaminophen 5/325 mg Tablet PO PRN (22:35)
[2019-10-14] MEDS ORDERED: Acetaminophen 325 MG TAB PO PRN (22:35)
[2019-10-14] MEDS ORDERED: Labetalol HCl 100 MG/20 ML VIAL SLOW IVP PRN (22:35)
[2019-10-14] MEDS ORDERED: Morphine 2 MG/ML SYRINGE SLOW IVP PRN (22:35)
[2019-10-14] MEDS ORDERED: Promethazine HCl 12.5 MG in Sodium Chloride 0.9% 50 ML IVPB PRN (22:35)
[2019-10-14] MEDS ORDERED: Vancomycin 1 GM in Premix Bag 1 BAG IVPB ONE (22:37)
[2019-10-14] MEDS ORDERED: Guaifenesin DM 100-10/5 ML UDCUP PO PRN (22:37)
[2019-10-14] MEDS ORDERED: Bacteriostatic Water 30 ML VIAL FS PRN (22:43)
[2019-10-14] MEDS ORDERED: Albuterol 200 PUFF (6.7GM INHALER) INH PRN (22:49)
[2019-10-14] MEDS ORDERED: Vancomycin 1.5 GRAM/300 ML BAG 1.5 GM in Premix Bag 1 BAG IVPB SCH (23:00)
--- NOTE | 2019-10-14 23:09 | PDOC.HHP ---
Hospitalist HPI - History of Present Illness Cough, debility History of Present Illness: Patient is a 69 year old female with PMH HTN, hyperlipidemia, atrial fibrillation, breast cancer w/ lumpectomy and radiation, DM who presents to ED via EMS for continued weakness, cough, debility. She had recent admission for pneumonia and was treated and went home but did not get better, was not really walking and still has a cough and not thriving well. She went to PCP who could not set up HH due to insurance issues and was referred to ED. She was swabbed for covid but has tested negative twice in past. CXR and CTA reveals bilateral pneumonia. Hospitalist ROS - Review of Systems Constitutional: reports: weakness, malaise. denies: fever, chills, sweats, other Eyes: denies: pain, vision change, conjunctivae inflammation, eyelid inflammation, redness, other ENT: denies: ear pain, ear discharge, nose pain, nose discharge, nose congestion , mouth pain, mouth swelling, throat pain, throat swelling, other Respiratory: reports: cough, dry, shortness of breath. denies: hemoptysis, SOB with excertion, pleuritic pain, sputum, wheezing, other Cardiovascular: denies: chest pain, palpitations, orthopnea, paroxysmal noc. dyspnea, edema, light headedness, other Gastrointestinal: denies: nausea, vomiting, abdominal pain, diarrhea, constipation, melena, hematochezia, other Genitourinary: denies: dysuria, frequency, incontinence, hematuria, retention, other Musculoskeletal: denies: neck pain, shoulder pain, arm pain, back pain, hand pain, leg pain, foot pain, other Skin: denies: rash, lesions, kasandra, bruising, other Neurological: denies: weakness, numbness, incoordination, change in speech, confusion, seizures, other All other systems reviewed; all pertinent +/- noted in HPI/Subj Hospitalist History - Past Medical History Other Medical History: HTN, hyperlipidemia, atrial fibrillation, breast cancer w/ lumpectomy and radiation, DM - Past Surgical History Other Surgical History: RT KNEE REPLACEMENT 210, TUMOR REMOVAL LT BREAST-BENIGN, Surgical history of appendectomy. Lumpectomy to right breast. - Family History Family History: reports: no pertinent history - Social History Smoking Status: Never smoker Alcohol: reports: None Drugs: reports: none - Exam General Appearance: NAD, awake alert Eye: PERRL, anicteric sclera ENT: normocephalic atraumatic, no oropharyngeal lesions, moist mucosa Neck: supple, symmetric, no JVD, no thyromegaly, no lymphadenopathy, no carotid bruit Heart: RRR, no murmur, no gallops, no rubs, normal peripheral pulses Respiratory: CTAB, no wheezes, no rales, no ronchi, normal chest expansion, no tachypnea, normal percussion Gastrointestinal: soft, non-tender, non-distended, normal bowel sounds, no palpable masses, no hepatomegaly, no splenomegaly, no bruit Extremities: no cyanosis, no clubbing, no edema Skin: normal turgor, no lesions, no rashes Neurological: cranial nerve grossly intact, normal sensation to touch, no weakness, no focal deficits, no new deficit Musculoskeletal: normal tone, normal strength, no muscle wasting Psychiatric: normal affect, normal behavior, A&O x 3 Hospitalist Results - Labs Result Diagrams: 10/14/19 15:40 10/14/19 15:40 Lab results: WBC 3.8 thou/uL (4.8-10.8) L 10/14/19 15:40 Hgb 11.2 g/dL (12.0-16.0) L 10/14/19 15:40 Hct 34.6 % (36.0-47.0) L 10/14/19 15:40 MCV 95.5 fL (78.0-98.0) 10/14/19 15:40 Plt Count 174 thou/uL (130-400) 10/14/19 15:40 Neutrophils % 62.8 % (42.0-75.0) 10/14/19 15:40 VBG pCO2 36.4 mmHg (40.0-50.0) L 10/14/19 16:44 VBG pO2 25.5 mmHg (35.0-45.0) L 10/14/19 16:44 Sodium 133 mmol/L (136-145) L 10/14/19 15:40 Potassium 4.2 mmol/L (3.5-5.1) 10/14/19 15:40 Chloride 105 mmol/L (98-107) 10/14/19 15:40 Carbon Dioxide 20 mmol/L (23-31) L 10/14/19 15:40 BUN 13 mg/dL (9.8-20.1) 10/14/19 15:40 Creatinine 0.81 mg/dL (0.6-1.1) 10/14/19 15:40 Glucose 79 mg/dL (83-110) L 10/14/19 15:40 Lactic Acid 1.7 mmol/L (0.5-2.2) 10/14/19 15:40 Calcium 9.6 mg/dL (7.8-10.44) 10/14/19 15:40 Total Bilirubin 0.3 mg/dL (0.2-1.2) 10/14/19 15:40 AST 32 U/L (5-34) 10/14/19 15:40 ALT 28 U/L (8-55) 10/14/19 15:40 Alkaline Phosphatase 52 U/L (40-110) 10/14/19 15:40 Serum Total Protein 6.2 g/dL (6.0-8.3) 10/14/19 15:40 Albumin 3.4 g/dL (3.4-4.8) 10/14/19 15:40 Lipase 46 U/L (8-78) 10/14/19 15:40 Urine Ketones Negative mg/dL (Negative) 10/14/19 16:25 Urine Blood Negative (Negative) 10/14/19 16:25 Urine Nitrite Negative (Negative) 10/14/19 16:25 Ur Leukocyte Esterase Negative Chica/uL (Negative) 10/14/19 16:25 Additional comment: vitals, imaging reviewed, labs and ekg as well Hospitalist H&P A/P - Plan Plan: Patient is a 69 year old female with PMH HTN, hyperlipidemia, atrial fibrillation, breast cancer w/ lumpectomy and radiation, DM who presents to ED via EMS for pneumonia, debility # bilateral pneumonia - recent negative covid/flu test, weakness and cough persist despite treatment - admit to floor - start vanc and zosyn and resp culture ordered in case resistant org causing the problems - wean O2 based on symptoms. - follow up covid rule out # hyponatremia - treat as above # DM - SSI resume home meds # HTN - resume home meds, PRNs in chart # atrial fibrillation - continue home meds, telemetry # history of breast cancer - outpatient follow up recommended, had lumpectomy and radiation # HLD - resume home meds DVT ppx GI ppx
[2019-10-14] MEDS ORDERED: Piperacillin/Tazobactam 3.375 GM in Sodium Chloride 0.9% 100 ML IVPB SCH (23:59)
[2019-10-15] MEDS ORDERED: Dextrose 50% Abboject 50 ML SYRINGE SLOW IVP PRN (02:54)
[2019-10-15] MEDS ORDERED: Dextrose 5% in Water 1,000 ML IV PRN (02:54)
[2019-10-15 05:37] LABS: #Lymphocytes 1.2 thou/uL (1.20-3.40); #Monocytes 0.4 thou/uL (0.11-0.59); #Neutrophils 1.6 thou/uL (1.40-6.50); %Basophils 0.4 % (0.0-1.0); %Eosinophils 1.1 % (0.0-10.0); %Lymphocytes 36.6 % (21.0-51.0); %Monocytes 12.8 % (0.0-10.0); %Neutrophils 49.2 % (42.0-75.0); Hemoglobin 10.7 g/dL (12.0-16.0); Mean Corpuscular Hemoglobin 32.4 pg (27.0-31.0); Mean Corpuscular Volume 95.3 fL (78.0-98.0); Platelet Count 165 thou/uL (130-400); RBC Distribution Width 12.1 % (11.5-14.5); White Blood Cell (WBC) Count 3.3 thou/uL (4.8-10.8)
[2019-10-15 06:00] LABS: Anion Gap 13 mmol/L (10-20); BUN (Urea Nitrogen) 7 mg/dL (9.8-20.1); Calc. Creatinine Clearance 91 mL/min (70-130); Carbon Dioxide 18 mmol/L (23-31); Chloride 110 mmol/L (98-107); Estimated GFR-MDRD 81; Glucose 81 mg/dL (83-110); Magnesium 1.7 mg/dL (1.6-2.6); Potassium 4.1 mmol/L (3.5-5.1); Sodium 137 mmol/L (136-145)
[2019-10-15] MEDS ORDERED: Piperacillin/Tazobactam 3.375 GM in Sodium Chloride 0.9% 100 ML IVPB SCH (08:00)
[2019-10-15] MEDS: Flecainide 50 MG TAB PO SCH ×2 (08:05→20:50)
[2019-10-15] MEDS: Aspirin 81 mg Enteric Coated Tablet PO SCH (08:05)
[2019-10-15] MEDS: Famotidine 20 MG TAB PO SCH ×2 (08:05→20:50)
[2019-10-15] MEDS: Polyethylene Glycol 3350 17 GM Packet PO SCH (08:05)
[2019-10-15] MEDS: methylPREDNISolone Sod Succ/PF 125 MG/2 ML VIAL IVP SCH ×3 (08:06→23:46)
[2019-10-15] MEDS: Glimepiride 2 MG TAB PO SCH (08:07)
[2019-10-15] MEDS: Atenolol 25 MG TAB PO SCH ×2 (08:07→20:56)
[2019-10-15] MEDS: Atorvastatin Calcium 20 MG TAB PO SCH (08:07)
[2019-10-15] MEDS: Anastrozole 1 MG TAB PO SCH (08:07)
[2019-10-15 11:06] LABS: SARS-CoV-2 MS2 Positive; SARS-CoV-2 N Gene Positive; SARS-CoV-2 S Gene Positive; SARS-CoV-2 orf1ab Positive
[2019-10-15] MEDS: Piperacillin/Tazobactam 3.375 GM in Sodium Chloride 0.9% 100 ML IVPB SCH ×3 (11:53→23:47)
--- NOTE | 2019-10-15 15:13 | PDOC.HOSPP ---
- Subjective Encounter Date: 10/15/19 Encounter Time: 10:30 Subjective: has cough but no expectoration has exeertional sob none at rest no chest pain or palp is amb in room - Objective Vital Signs & Weight: Vital Signs (12 hours) Temp Pulse Resp BP Pulse Ox 10/15/19 12:00 98.5 F 62 18 161/64 H 93 L 10/15/19 08:07 68 10/15/19 08:00 98.7 F 65 18 132/62 91 L Weight Admit Weight 175 lb 4.8 oz Weight 175 lb 4.8 oz I&O: 10/14/19 10/15/19 10/16/19 06:59 06:59 06:59 Intake Total 1701 Balance 1701 Result Diagrams: 10/15/19 05:20 10/15/19 05:20 Additional Labs: Accuchecks 10/15/19 10/14/19 10/14/19 12:03 21:37 19:55 POC Glucose 170 H 97 67 L Hospitalist ROS - Medication Medications: Active Medications Generic Name Dose Route Start Last Admin Trade Name Zionq PRN Reason Stop Dose Admin Anastrozole 1 mg 10/15/19 09:00 10/15/19 08:07 Arimidex PO 1 mg DAILY NATALY Administration Aspirin 81 mg 10/15/19 09:00 10/15/19 08:05 Ecotrin PO 81 mg DAILY NATALY Administration Atenolol 12.5 mg 10/15/19 09:00 10/15/19 08:07 Tenormin PO 12.5 mg BID NATALY Administration Atorvastatin Calcium 20 mg 10/15/19 09:00 10/15/19 08:07 Lipitor PO 20 mg DAILY NATALY Administration Famotidine 20 mg 10/15/19 09:00 10/15/19 08:05 Pepcid PO 20 mg BID NATALY Administration Flecainide Acetate 50 mg 10/15/19 09:00 10/15/19 08:05 Tambocor PO 50 mg BID NATALY Administration Glimepiride 2 mg 10/15/19 09:00 10/15/19 08:07 Amaryl PO 2 mg DAILY NATALY Administration Piperacillin Sod/Tazobactam 100 mls @ 200 mls/hr 10/15/19 12:00 10/15/19 11: 53 Sod 3.375 gm/ Sodium Chloride IVPB 100 mls Q6HR NATALY Administration Methylprednisolone Sodium Succinate 60 mg 10/15/19 08:00 10/15/19 08:06 Solu-Medrol IVP 60 mg 0800,1600,2359 NATALY Administration Pantoprazole Sodium 40 mg 10/15/19 09:00 10/15/19 08:07 Protonix PO 40 mg QAM NATLAY Administration Polyethylene Glycol 17 gm 10/15/19 09:00 10/15/19 08:05 Miralax PO 17 gm DAILY NATALY Administration - Exam General Appearance: awake alert Eye: PERRL, anicteric sclera ENT: no oropharyngeal lesions, moist mucosa Neck: supple, no JVD Heart: RRR, no murmur Respiratory: no wheezes, no rales, rhonchi Gastrointestinal: soft, non-tender, non-distended, normal bowel sounds Extremities: no cyanosis, no edema Neurological: cranial nerve grossly intact, no focal deficits Psychiatric: normal affect, A&O x 3 Hosp A/P (1) Pneumonia due to COVID-19 virus Code(s): U07.1 - COVID-19; J12.89 - OTHER VIRAL PNEUMONIA Status: Acute (2) Afib Code(s): I48.91 - UNSPECIFIED ATRIAL FIBRILLATION Status: Chronic Qualifiers: Atrial fibrillation type: paroxysmal Qualified Code(s): I48.0 - Paroxysmal atrial fibrillation (3) HTN (hypertension) Code(s): I10 - ESSENTIAL (PRIMARY) HYPERTENSION Status: Chronic Qualifiers: Hypertension type: essential hypertension Qualified Code(s): I10 - Essential (primary) hypertension (4) Dyslipidemia Code(s): E78.5 - HYPERLIPIDEMIA, UNSPECIFIED Status: Chronic (5) DM type 2 (diabetes mellitus, type 2) Status: Chronic Qualifiers: Diabetes mellitus long term care social worker insulin use: without long term care social worker use (6) H/O malignant neoplasm of breast Code(s): Z85.3 - PERSONAL HISTORY OF MALIGNANT NEOPLASM OF BREAST Status: Chronic - Plan d/w covering , may start her on Remdesivir based on availability hemostable, is on nasal canula continue asp, lipitor, atenolol low dose, felcainide, anastrazole, amaryl, steroids, protonix may dc iv antibiotics if ok with previously her covid x2 was -ve on 09/22 and 09/25. She is +ve now.
--- NOTE | 2019-10-15 18:05 | CON ---
DATE OF CONSULTATION: 10/15/2019 REASON FOR CONSULTATION: COVID-19 infection. HISTORY OF PRESENT ILLNESS: The patient is a 69-year-old female, who is an outpatient of Dr. Tripathi. She presents to the hospital for the second time in the last 3 weeks. She said about 3 weeks ago, she began feeling ill with chills and fever. She was admitted at that time. She tells me she was tested and was COVID negative at that time. I cannot find any testing that was done at that time, but it could conceivably be under a different name. She says she was also tested for COVID as an outpatient about a week ago and was told she was negative at that time. She says that was done in the [facility]F facility but again I cannot find a record of that in the computer. She says she has had persistent low-grade fever at home. She has had occasional cough. She is only short of breath when she exerts herself. She came to the ER last night because she has seen Dr. Carrizales in his office and he told her she needs to be on some IVs at home but Home Health would not approve that. So she came into the hospital to get those IVs. She currently is feeling fairly well and she is barely hypoxic on room air. PAST MEDICAL HISTORY: 1. Hypertension. 2. Atrial fibrillation. 3. Chronic bronchitis. 4. Breast cancer with lumpectomy. 5. Diabetes mellitus. PAST SURGICAL HISTORY: Knee replacement, left breast tumor removal, appendectomy, right breast lumpectomy. FAMILY MEDICAL HISTORY: Unremarkable. SOCIAL HISTORY: Never smoked. Does not consume alcohol. Does not use illicit drugs. MEDICATIONS: Prior to admission 1. Olmesartan. 2. Guaifenesin. 3. Bactrim. 4. Xalatan eye drops. 5. Amaryl. 6. Flecainide. 7. Cholecalciferol. 8. Zyrtec. 9. Atorvastatin. 10. Atenolol. 11. Aspirin. 12. Ascorbic acid. 13. Anastrozole. 14. Metformin. 15. Coenzyme Q10. 16. Protonix. Current inpatient medications: These were reviewed and listed under the medication section of the chart. Of note, she is currently on Zosyn and vancomycin and she is also receiving methylprednisolone. REVIEW OF SYSTEMS: Twelve-point review of systems is otherwise negative. PHYSICAL EXAMINATION: VITAL SIGNS: O2 saturation is 93% on room air, temperature 98.7, pulse 65, respirations 18, blood pressure 132/62. GENERAL: The patient does not appear toxic. She is in no distress. HEENT: Unremarkable. NECK: No adenopathy or JVD. LUNGS: She has bibasilar crackles. CARDIAC: S1 and S2. Regular without murmur. ABDOMEN: Soft and nontender. EXTREMITIES: No clubbing, cyanosis, or edema. LABORATORY DATA: White blood cell count 3.3, hematocrit 31.5, and platelet count 165. Sodium 137, potassium 4.1, chloride 110, CO2 of 18, BUN 7, creatinine 0.7, glucose 81. COVID-19 test is positive. Her chest x-ray shows scattered bilateral infiltrates. This is confirmed on CT scan. ASSESSMENT: COVID-19 pneumonia without much in the way of hypoxemia. It appears that we are probably catching her on the tail end of this illness. She has had symptoms for the better part several weeks. I cannot find record of previous testing being done, but it is conceivable if it was done, then she had a false negative test as up to 30%, people will. RECOMMENDATION: I think she is probably too far out for remdesivir to be of any good to the patient. She is not sick enough to need IL6 inhibitor. I also do not believe she is sick enough to require serum plasma at this point. Overall, I will recommend conservative care. I would discontinue her IV antibiotics. Oxygen as needed. I would wean her steroids over the next week or so. I will notify Dr. Tripathi the patient's admission. Job ID: [id number]
[2019-10-15] MEDS: Vancomycin HCl 1.25 GM in Sodium Chloride 0.9% 250 ML 250 ML IVPB SCH (20:50)
[2019-10-15] MEDS: Latanoprost 0.005% Ophth Soln 2.5 ml Bottle EA EYE SCH (20:50)
[2019-10-15] MEDS: HumaLOG 300 UNITS/3 ML VIAL SC PRN (21:11)
[2019-10-16 05:20] LABS: #Lymphocytes 0.8 thou/uL (1.20-3.40); #Monocytes 0.3 thou/uL (0.11-0.59); %Basophils 0.3 % (0.0-1.0); %Eosinophils 0.2 % (0.0-10.0); %Lymphocytes 19.1 % (21.0-51.0); %Monocytes 8.2 % (0.0-10.0); %Neutrophils 72.3 % (42.0-75.0); Hemoglobin 11.6 g/dL (12.0-16.0); Mean Corpuscular HGB CONC 34.7 g/dL (32.0-36.0); Mean Corpuscular Hemoglobin 32.3 pg (27.0-31.0); Mean Corpuscular Volume 93.2 fL (78.0-98.0); Mean Platelet Volume 8.9 fL (7.4-10.4); Platelet Count 209 thou/uL (130-400); RBC Distribution Width 11.9 % (11.5-14.5); Red Blood Cell (RBC) Count 3.59 mill/uL (4.20-5.40); White Blood Cell (WBC) Count 4.2 thou/uL (4.8-10.8)
[2019-10-16 05:41] LABS: Anion Gap 10 mmol/L (10-20); BUN (Urea Nitrogen) 7 mg/dL (9.8-20.1); Calc. Creatinine Clearance 89 mL/min (70-130); Calcium 10.2 mg/dL (7.8-10.44); Carbon Dioxide 24 mmol/L (23-31); Chloride 109 mmol/L (98-107); Estimated GFR-MDRD 79; Glucose 188 mg/dL (83-110); Magnesium 1.8 mg/dL (1.6-2.6); Potassium 4.3 mmol/L (3.5-5.1); Sodium 139 mmol/L (136-145)
[2019-10-16] MEDS: Piperacillin/Tazobactam 3.375 GM in Sodium Chloride 0.9% 100 ML IVPB SCH ×4 (06:21→21:31)
[2019-10-16] MEDS: HumaLOG 300 UNITS/3 ML VIAL SC PRN ×3 (06:22→21:59)
[2019-10-16] MEDS: Aspirin 81 mg Enteric Coated Tablet PO SCH (07:56)
[2019-10-16] MEDS: Glimepiride 2 MG TAB PO SCH (07:57)
[2019-10-16] MEDS: Famotidine 20 MG TAB PO SCH ×2 (07:57→19:50)
[2019-10-16] MEDS: Atorvastatin Calcium 20 MG TAB PO SCH (07:57)
[2019-10-16] MEDS: Anastrozole 1 MG TAB PO SCH (07:57)
[2019-10-16] MEDS: Flecainide 50 MG TAB PO SCH ×2 (07:57→19:50)
[2019-10-16] MEDS: Atenolol 25 MG TAB PO SCH ×2 (07:57→19:50)
[2019-10-16] MEDS: Polyethylene Glycol 3350 17 GM Packet PO SCH ×2 (07:58→08:10)
[2019-10-16] MEDS: methylPREDNISolone Sod Succ/PF 125 MG/2 ML VIAL IVP SCH ×3 (07:58→21:32)
[2019-10-16] MEDS: Guaifenesin DM 100-10/5 ML UDCUP PO PRN ×2 (08:11→17:58)
--- NOTE | 2019-10-16 16:30 | PRG ---
DATE OF SERVICE: SUBJECTIVE: Ms. Haywood's history was reviewed. I talked to her about it. She apparently has been sick for about 3 weeks. She says she has had 2 negative COVID screens. Interestingly enough, she has not been febrile since she has been in here, suggesting to me that she is actually on the downhill slide and probably no longer contagious. OBJECTIVE: VITAL SIGNS: Her blood pressure is in the 141/70 range, respiratory rates in the teens. She is talking in very complete sentences without any distress at all. Oximetry is 91 to 92 on room air. LUNGS: Unchanged. HEART: Unchanged. ABDOMEN: Unchanged. IMPRESSION: COVID-19 pneumonia, probably symptomatic for 2 to 3 weeks. Her contacts need to be notified to get screened. We will follow along loosely over the weekend. Job ID: [id number]
[2019-10-16] MEDS: Latanoprost 0.005% Ophth Soln 2.5 ml Bottle EA EYE SCH (19:50)
--- NOTE | 2019-10-16 20:08 | PDOC.HOSPP ---
- Subjective Encounter Date: 10/16/19 Encounter Time: 17:00 Subjective: Patient evaulated for COVID infection. SOB improving. No new complaints. No overnight events - Objective Vital Signs & Weight: Vital Signs (12 hours) Temp Pulse Resp BP Pulse Ox 10/16/19 19:50 59 L 10/16/19 15:25 98.4 F 59 L 16 179/72 H 92 L 10/16/19 11:50 98.7 F 56 L 16 148/70 H 91 L 10/16/19 08:10 98.1 F 63 20 159/76 H 91 L Weight Admit Weight 175 lb 4.8 oz Weight 175 lb 4.8 oz I&O: 10/15/19 10/16/19 10/17/19 06:59 06:59 06:59 Intake Total 1700 2038 1280 Output Total 500 Balance 1700 2038 780 Result Diagrams: 10/16/19 05:06 10/16/19 05:06 Additional Labs: Accuchecks 10/16/19 10/16/19 10/15/19 18:08 11:50 20:56 POC Glucose 202 H 180 H 219 H Hospitalist ROS - Review of Systems Gastrointestinal: denies: nausea, vomiting, abdominal pain, diarrhea, constipation, melena, hematochezia, other - Medication Medications: Active Medications Generic Name Dose Route Start Last Admin Trade Name Freq PRN Reason Stop Dose Admin Anastrozole 1 mg 10/15/19 09:00 10/16/19 07:57 Arimidex PO 1 mg DAILY NATALY Administration Aspirin 81 mg 10/15/19 09:00 10/16/19 07:56 Ecotrin PO 81 mg DAILY NATALY Administration Atenolol 12.5 mg 10/15/19 09:00 10/16/19 19:50 Tenormin PO 12.5 mg BID NATALY Administration Atorvastatin Calcium 20 mg 10/15/19 09:00 10/16/19 07:57 Lipitor PO 20 mg DAILY NATALY Administration Famotidine 20 mg 10/15/19 09:00 10/16/19 19:50 Pepcid PO 20 mg BID NATALY Administration Flecainide Acetate 50 mg 10/15/19 09:00 10/16/19 19:50 Tambocor PO 50 mg BID NATALY Administration Glimepiride 2 mg 10/15/19 09:00 10/16/19 07:57 Amaryl PO 2 mg DAILY NATALY Administration Guaifenesin/Dextromethorphan 15 ml 10/14/19 22:35 10/16/19 17:58 Robitussin Dm PO 15 ml Q4H PRN Administration Cough Vancomycin HCl 1.25 gm/ Sodium 250 mls @ 166.667 mls/hr 10/15/19 22:00 20:50 Chloride IVPB 250 mls 2200 NATALY Administration Piperacillin Sod/Tazobactam 100 mls @ 200 mls/hr 10/15/19 12:00 10/16/19 17: 58 Sod 3.375 gm/ Sodium Chloride IVPB 100 mls Q6HR NATALY Administration Insulin Human Lispro 0 units 10/15/19 02:54 10/16/19 18:38 Humalog SC 3 unit .MILD SLIDING SCALE PRN Administration Mild Correctional Scale Insulin Human Lispro 0 units 10/15/19 02:54 10/15/19 21:11 Humalog SC 2 unit .BEDTIME SLIDING SC PRN Administration Bedtime Correctional Scale Latanoprost 1 drop 10/15/19 21:00 10/16/19 19:50 Xalatan 0.005% Ophth Soln EA EYE 1 drop HS NATALY Administration Methylprednisolone Sodium Succinate 60 mg 10/15/19 08:00 10/16/19 15:17 Solu-Medrol IVP 60 mg 0800,1600,2359 NATALY Administration Pantoprazole Sodium 40 mg 10/15/19 09:00 10/16/19 07:57 Protonix PO 40 mg QAM NATALY Administration Polyethylene Glycol 17 gm 10/15/19 09:00 10/16/19 08:10 Miralax PO Not Given DAILY NATALY Hosp A/P (1) Pneumonia due to COVID-19 virus Code(s): U07.1 - COVID-19; J12.89 - OTHER VIRAL PNEUMONIA Status: Acute (2) DM type 2 (diabetes mellitus, type 2) Status: Chronic Qualifiers: Diabetes mellitus prison insulin use: without prison use (3) Dyslipidemia Code(s): E78.5 - HYPERLIPIDEMIA, UNSPECIFIED Status: Chronic (4) HTN (hypertension) Code(s): I10 - ESSENTIAL (PRIMARY) HYPERTENSION Status: Chronic Qualifiers: Hypertension type: essential hypertension Qualified Code(s): I10 - Essential (primary) hypertension - Plan On IV Vanc/Zosyn/Solumedrol Monitor Vanc level Cont slding scale Isolation for COVID AM labs Cont supportive care
[2019-10-16 21:47] LABS: Vancomycin, Trough 3.9 ug/mL
[2019-10-16] MEDS: Vancomycin HCl 1.25 GM in Sodium Chloride 0.9% 250 ML 250 ML IVPB SCH (21:59)
[2019-10-17] MEDS: Piperacillin/Tazobactam 3.375 GM in Sodium Chloride 0.9% 100 ML IVPB SCH (05:24)
[2019-10-17] MEDS: HumaLOG 300 UNITS/3 ML VIAL SC PRN ×3 (05:34→16:15)
[2019-10-17 05:35] LABS: #Lymphocytes 1.1 thou/uL (1.20-3.40); #Monocytes 0.5 thou/uL (0.11-0.59); #Neutrophils 6.9 thou/uL (1.40-6.50); %Basophils 0.6 % (0.0-1.0); %Eosinophils 0.1 % (0.0-10.0); %Lymphocytes 13.3 % (21.0-51.0); %Monocytes 5.7 % (0.0-10.0); %Neutrophils 80.3 % (42.0-75.0); Hemoglobin 11.7 g/dL (12.0-16.0); Mean Corpuscular HGB CONC 33.7 g/dL (32.0-36.0); Mean Corpuscular Hemoglobin 31.6 pg (27.0-31.0); Mean Corpuscular Volume 93.9 fL (78.0-98.0); Mean Platelet Volume 8.4 fL (7.4-10.4); Platelet Count 248 thou/uL (130-400); RBC Distribution Width 11.7 % (11.5-14.5); White Blood Cell (WBC) Count 8.5 thou/uL (4.8-10.8)
[2019-10-17 06:12] LABS: Anion Gap 13 mmol/L (10-20); BUN (Urea Nitrogen) 10 mg/dL (9.8-20.1); Calc. Creatinine Clearance 86 mL/min (70-130); Calcium 10.2 mg/dL (7.8-10.44); Carbon Dioxide 24 mmol/L (23-31); Chloride 107 mmol/L (98-107); Estimated GFR-MDRD 76; Glucose 196 mg/dL (83-110); Magnesium 1.9 mg/dL (1.6-2.6); Potassium 4.1 mmol/L (3.5-5.1); Sodium 140 mmol/L (136-145)
[2019-10-17] MEDS: methylPREDNISolone Sod Succ/PF 125 MG/2 ML VIAL IVP SCH ×2 (08:04→21:25)
[2019-10-17] MEDS: Polyethylene Glycol 3350 17 GM Packet PO SCH (08:04)
[2019-10-17] MEDS: Atorvastatin Calcium 20 MG TAB PO SCH (08:05)
[2019-10-17] MEDS: Atenolol 25 MG TAB PO SCH ×2 (08:05→08:24)
[2019-10-17] MEDS: Aspirin 81 mg Enteric Coated Tablet PO SCH (08:05)
[2019-10-17] MEDS: Glimepiride 2 MG TAB PO SCH (08:05)
[2019-10-17] MEDS: Anastrozole 1 MG TAB PO SCH (08:05)
[2019-10-17] MEDS: Flecainide 50 MG TAB PO SCH ×2 (08:05→21:25)
[2019-10-17] MEDS: Famotidine 20 MG TAB PO SCH ×2 (08:05→21:25)
[2019-10-17] MEDS ORDERED: Vancomycin HCl 1.25 GM in Sodium Chloride 0.9% 250 ML 250 ML IVPB SCH (10:00)
[2019-10-17] MEDS ORDERED: Piperacillin/Tazobactam 3.375 GM in Sodium Chloride 0.9% 100 ML IVPB SCH (12:00)
--- NOTE | 2019-10-17 12:40 | PRG ---
DATE OF SERVICE: 10/17/2019 OBJECTIVE: VITAL SIGNS: This morning, her temperature is , pulse 61, blood pressure 160/74, saturations 100% on room air. GENERAL: No coughing or wheezing. CHEST: No wheezing or crackles. CARDIAC: Normal S1, S2. No gallops. ABDOMEN: No masses. ASSESSMENT: Urinary tract infection, johansen-positive pneumonia. I am going to switch her over to p.o. antibiotics. p.o. steroids tomorrow. Otherwise, supportive care, PT. Hopefully, she remains stable. She may be discharged to home in the next several days. Job ID: [id number]
[2019-10-17] MEDS: hydrALAZINE 20 MG/ML VIAL SLOW IVP PRN (16:25)
--- NOTE | 2019-10-17 16:29 | PDOC.HOSPP ---
- Subjective Encounter Date: 10/17/19 Encounter Time: 09:00 Subjective: no overnight events. This morning, continues to improve and has no complaints. CRP -ve, ddimer mildly elevated. Niece is nurse so may be source. Family was notified by patient regarding positive covid - Objective Vital Signs & Weight: Vital Signs (12 hours) Temp Pulse Resp BP BP Pulse Ox 10/17/19 16:00 97.7 F 71 20 173/77 H 94 L 10/17/19 12:00 98.3 F 50 L 20 173/76 H 93 L 10/17/19 08:24 61 160/74 H 10/17/19 08:05 61 10/17/19 08:00 97.5 F L 61 20 160/74 H 94 L Weight Admit Weight 175 lb 4.8 oz Weight 175 lb 4.8 oz I&O: 10/16/19 10/17/19 10/18/19 06:59 06:59 06:59 Intake Total 2038 1999 Output Total 1999 Balance 2038 0 Result Diagrams: 10/17/19 05:21 10/17/19 05:21 Additional Labs: Accuchecks 10/17/19 10/17/19 10/17/19 16:12 12:13 05:36 POC Glucose 178 H 200 H 194 H 10/16/19 10/16/19 21:42 18:08 POC Glucose 240 H 202 H Hospitalist ROS - Review of Systems Constitutional: denies: fever, chills, sweats, weakness, malaise, other Respiratory: denies: cough, dry, shortness of breath, hemoptysis, SOB with excertion, pleuritic pain, sputum, wheezing, other Cardiovascular: denies: chest pain, palpitations, orthopnea, paroxysmal noc. dyspnea, edema, light headedness, other Gastrointestinal: denies: nausea, vomiting, abdominal pain, diarrhea, constipation, melena, hematochezia, other - Medication Medications: Active Medications Generic Name Dose Route Start Last Admin Trade Name Freq PRN Reason Stop Dose Admin Anastrozole 1 mg 10/15/19 09:00 10/17/19 08:05 Arimidex PO 1 mg DAILY NATALY Administration Aspirin 81 mg 10/15/19 09:00 10/17/19 08:05 Ecotrin PO 81 mg DAILY NATALY Administration Atenolol 12.5 mg 10/17/19 09:00 10/17/19 08:24 Tenormin PO Not Given DAILY NATALY Atorvastatin Calcium 20 mg 10/15/19 09:00 10/17/19 08:05 Lipitor PO 20 mg DAILY NATALY Administration Famotidine 20 mg 10/15/19 09:00 10/17/19 08:05 Pepcid PO 20 mg BID NATALY Administration Flecainide Acetate 50 mg 10/15/19 09:00 10/17/19 08:05 Tambocor PO 50 mg BID NATALY Administration Glimepiride 2 mg 10/15/19 09:00 10/17/19 08:05 Amaryl PO 2 mg DAILY NATALY Administration Guaifenesin/Dextromethorphan 15 ml 10/14/19 22:35 10/16/19 17:58 Robitussin Dm PO 15 ml Q4H PRN Administration Cough Insulin Human Lispro 0 units 10/15/19 02:54 10/17/19 16:15 Humalog SC 2 unit .MILD SLIDING SCALE PRN Administration Mild Correctional Scale Insulin Human Lispro 0 units 10/15/19 02:54 10/16/19 21:59 Humalog SC 2 unit .BEDTIME SLIDING SC PRN Administration Bedtime Correctional Scale Latanoprost 1 drop 10/15/19 21:00 10/16/19 19:50 Xalatan 0.005% Ophth Soln EA EYE 1 drop HS NATALY Administration Pantoprazole Sodium 40 mg 10/15/19 09:00 10/17/19 08:05 Protonix PO 40 mg QAM NATALY Administration Polyethylene Glycol 17 gm 10/15/19 09:00 10/17/19 08:04 Miralax PO Not Given DAILY [facility] - Exam General Appearance: NAD, awake alert Heart: RRR, no murmur, no gallops, no rubs, normal peripheral pulses Respiratory: CTAB, no wheezes, no rales, no ronchi, normal chest expansion, no tachypnea, normal percussion Gastrointestinal: soft, non-tender, non-distended, normal bowel sounds, no palpable masses, no hepatomegaly, no splenomegaly, no bruit Hosp A/P - Plan #covid pneumonia -CRP negative, ddimer mildly elevated; clinically doing well -on steroids per Pulmonology; will transition to PO based on their recs tomorrow -ABx stopped #HTN -reconciled home meds ELOS 1 midnight
[2019-10-17] MEDS ORDERED: Losartan 25 MG TAB PO SCH (16:30)
[2019-10-17] MEDS: metFORMIN 500 MG TAB PO SCH (17:17)
[2019-10-17] MEDS: Ascorbic Acid 500 mg Chewable Tablet PO SCH (21:25)
[2019-10-17] MEDS: Guaifenesin DM 100-10/5 ML UDCUP PO PRN (21:26)
[2019-10-17] MEDS: Latanoprost 0.005% Ophth Soln 2.5 ml Bottle EA EYE SCH (21:26)
[2019-10-18] MEDS: hydrALAZINE 20 MG/ML VIAL SLOW IVP PRN (03:44)
[2019-10-18] MEDS: HumaLOG 300 UNITS/3 ML VIAL SC PRN (06:49)
[2019-10-18] MEDS: methylPREDNISolone Sod Succ/PF 125 MG/2 ML VIAL IVP SCH (08:11)
[2019-10-18] MEDS: Atenolol 25 MG TAB PO SCH (08:12)
[2019-10-18] MEDS: metFORMIN 500 MG TAB PO SCH (08:12)
[2019-10-18] MEDS: Glimepiride 2 MG TAB PO SCH (08:13)
[2019-10-18] MEDS: Aspirin 81 mg Enteric Coated Tablet PO SCH (08:13)
[2019-10-18] MEDS: Losartan 25 MG TAB PO SCH ×2 (08:13→09:47)
[2019-10-18] MEDS: Polyethylene Glycol 3350 17 GM Packet PO SCH (08:14)
[2019-10-18] MEDS: Famotidine 20 MG TAB PO SCH (08:14)
[2019-10-18] MEDS: Ascorbic Acid 500 mg Chewable Tablet PO SCH (08:14)
[2019-10-18] MEDS: Anastrozole 1 MG TAB PO SCH (08:14)
[2019-10-18] MEDS: Atorvastatin Calcium 20 MG TAB PO SCH (08:14)
[2019-10-18] MEDS: Flecainide 50 MG TAB PO SCH (08:14)
[2019-10-18] MEDS ORDERED: Loratadine 10 MG TAB PO SCH (09:00)
[2019-10-18 12:56] VITALS: BP 172/92; TEMP 98.2
[2019-10-19] MEDS ORDERED: predniSONE 20 MG TAB PO SCH (08:00)
--- NOTE | 2019-10-19 08:14 | DIS ---
DATE OF ADMISSION: 10/14/2019 DATE OF DISCHARGE: 10/18/2019 HOSPITAL COURSE: Ms. Haywood is a 69-year-old female with medical history of hypertension, hyperlipidemia, atrial fibrillation, breast cancer with lumpectomy and radiation, and type-2 diabetes, presented to the ED for weakness and cough. She was diagnosed with COVID pneumonia. Initial symptoms were in mid September, after which she was ruled out for COVID twice. However, the patient progressively worsened and presented again to the ED. During her inpatient stay, the patient's respiratory symptoms improved. She remained afebrile throughout her stay. The patient was discharged home based on clinical criteria with continued antibiotic treatment based on pulmonology recommendations and no clinical instability factor for a total duration of 7 days. She was discharged home for continued isolation for 3 additional days and followup appointment with primary care physician. PHYSICAL EXAMINATION: VITAL SIGNS: Blood pressure 142/73, pulse 78, respiratory rate 16, oxygen saturation 96% on 4 L nasal cannula. However, during encounter, the patient saturated high 90s on room air. GENERAL: Sitting comfortably in bed, in no apparent distress. HEART: Regular rate and rhythm. No murmurs, gallops, or rubs. Normal peripheral pulses. RESPIRATORY: Clear to auscultation bilaterally. No wheezes, rales, or rhonchi. No tachypnea. GI: Soft, nontender, nondistended. Normal bowel sounds. NEW MEDICATIONS: Levaquin 500 mg p.o. daily for 3 more days based on Pulmonology recommendations. Otherwise, medications were unchanged. Job ID: [id number]
== END 2019-10-18 14:25 | disposition home or self-care (01) | DRG 177 ==
LOC: ERS 14:52 → 2SW 19:36 → OBSVTOIN 19:36
PROVIDERS: ADMIT Internal Medicine; ATTEND Internal Medicine
PROC: 8E0ZXY6 Isolation (ICD-10-PCS; principal; 2019-10-14)
DX: U07.1 COVID-19 (principal); J12.89 Other viral pneumonia; E87.1 Hypo-osmolality and hyponatremia; N39.0 Urinary tract infection, site not specified; I10 Essential (primary) hypertension; E11.9 Type 2 diabetes mellitus without complications; E86.0 Dehydration; K21.9 Gastro-esophageal reflux disease without esophagitis; E78.00 Pure hypercholesterolemia, unspecified; E78.5 Hyperlipidemia, unspecified; I48.91 Unspecified atrial fibrillation; Z96.651 Presence of right artificial knee joint; Z79.01 Long term (current) use of anticoagulants; Z90.49 Acquired absence of other specified parts of digestive tract; Z98.42 Cataract extraction status, left eye; Z98.41 Cataract extraction status, right eye; Z79.4 Long term (current) use of insulin; Z85.3 Personal history of malignant neoplasm of breast
CPT/HCPCS: 36415; 36416; 71046; 71275; 80048; 80053; 80202; 81003; 82330; 82728; 82803; 83605; 83690; 83735; 85025; 85379; 86140; 87635; 96361; 96374; J0360; J2405; J2543; J2930; J3370; J3490; J7050; Q9967; U0003

== ENCOUNTER 2019-11-11 09:28 | Outpatient (CLI) | payer MEDICARE ==
--- NOTE | 2019-11-11 09:45 | RAD ---
EXAM: Two views chest PROVIDED CLINICAL HISTORY: Dyspnea. Follow-up pneumonia. COMPARISON: 10/14/2019 FINDINGS: Cardiac silhouette and pulmonary vasculature are within normal limits. Minimal linear patchy densiti es seen at the lateral aspect right lung base with linear densities again seen at the left lung base. Patchy density seen at the left lung base on prior study have mildly improved. Minimal patchy d ensity is seen in the left upper lung zone. No consolidation or pleural fluid is appreciated. Degenerative changes are again seen in the spine. Vascular calcifications are again seen in the thora cic aorta. IMPRESSION: 1. Minimal linear and patchy density right lung base with minimal patchy density left upper lung zone which could be related to focal areas of pneumonitis. Continued follow-up is recommended. 2. Improvement in patchy densities at the left lung base compared to the prior exam, but there are pe rsistent linear densities at the left lung base which may be related to atelectasis and/or scarring..
== END 2019-11-11 09:29 | disposition home or self-care (01) ==
LOC: BICRAD 09:28
PROVIDERS: ATTEND Internal Medicine Critical Care Medicine
DX: R06.00 Dyspnea, unspecified (principal); J98.4 Other disorders of lung
CPT/HCPCS: 71046

== ENCOUNTER 2019-11-17 14:45 | Outpatient (CLI) | payer MEDICARE ==
--- NOTE | 2019-11-17 15:43 | MMO ---
Bilateral MAMMO Bilat Diag [facility]+KAREEN. CLINICAL HISTORY: Patient is 69 years old and is seen for diagnostic exam and palpable abnormality in the right breast. The patient has the following family history of breast cancer: 2 paternal aunts. The patient has a history of Ultrasound guided core biopsy procedure revealed invasive ductal right breast carcinoma in December,. The patient has a history of right Ultrasound Guided Core Biopsy in December,, right Lumpectomy in 2014 - malignant and left Excisional Biopsy in Sep, 2005 - benign. VIEWS: The views performed were: bilateral craniocaudal with tomosynthesis; bilateral mediolateral oblique with tomosynthesis; and bilateral mediolateral with tomosynthesis. FILMS COMPARED: The present examination has been compared to prior imaging studies performed at [facility] on 12/28/2016, 12/30/2017, 01/06/2019 and 11/17/2019. This study has been interpreted with the assistance of computer-aided detection. MAMMOGRAM FINDINGS: There are scattered fibroglandular densities. Finding 1: There are stable post operative changes seen in the right breast. Finding 2: There are stable benign appearing calcifications seen in both breasts. Finding 3: There are no mammographic or sonographic abnormalities in the area of palpable concern. The patient is referred back to her clinician. Negative imaging findings should not preclude biopsy if clinical findings are suspicious. IMPRESSION: FINDING 3: THERE ARE NO MAMMOGRAPHIC ABNORMALITIES IN THE AREA OF PALPABLE CONCERN. THE PATIENT IS REFERRED BACK TO HER CLINICIAN. NEGATIVE IMAGING FINDINGS SHOULD NOT PRECLUDE BIOPSY IF CLINICAL FINDINGS ARE SUSPICIOUS. A ROUTINE FOLLOW-UP MAMMOGRAM IN 1 YEAR IS RECOMMENDED. THE RESULTS OF THIS EXAM WERE SENT TO THE PATIENT. ACR BI-RADS Category 2 - Benign finding MAMMOGRAPHY NOTE: 1. A negative mammogram report should not delay a biopsy if a dominant of clinically suspicious mass is present. 2. Approximately 10% to 15% of breast cancers are not detected by mammography. 3. Adenosis and dense breasts may obscure an underlying neoplasm. Reported by: EMIR FREED MD Electonically Signed: [id number]
--- NOTE | 2019-11-17 15:45 | ULT ---
EXAM: US Breast Limited Rt PROVIDED CLINICAL HISTORY: History COMPARISON: None FINDINGS: Limited sonographic interrogation was performed of the right breast in the region of palpable concern . The sonographic appearance of the breast tissue in this region is normal. IMPRESSION: No sonographic abnormality is evident in the region of clinical concern. Negative imaging findings sh ould not preclude further evaluation of a clinically suspicious finding. Patient is referred back to her clinician. BI-RADS 1 -- negative findings (within normal)
--- NOTE | 2019-11-17 16:29 | BD ---
DEXA BONE DENSITOMETRY: (Dual energy X-ray Absorptiometry) 11/17/19 HISTORY: 64-irlm[age]xegm white female for postmenopausal, age-related, osteoporosis screening examination. N95.8. Height: 66 inches Weight: 174 lb. Age of menopause: 41 years COMPARISON: None available. FINDINGS: The bone mineral density (BMD) is given in grams per square centimeter (g/cm2): LUMBAR SPINE: BMD(g/cm2) T-score Z-score L1: 0.964 -0.2 1.7 L2: 1.006 -0.2 2.0 L3: 1.183 0.9 3.2 L4: 1.038 -0.2 2.2 Total: 1.043 0.0 2.2 HIP: Femoral neck: 0.691 -1.4 0.5 Total: 0.814 -1.0 0.6 FRAX WHO Fracture Risk Assessment Tool: 10 Year Fracture Risk * Major osteoporotic fracture: 10% Hip fracture: 1.5% Reported Risk Factors: US(), Neck BMD=0.691, BMI=28.1 * Fracture probability is calculated for an untreated patient. Fracture probability may be lower if the patient has received treatment. IMPRESSION: 1) Although the overall bone mineral density of the lumbar spine is in the normal range, there are sc lerotic, degenerative changes in the lumbar spine which elevate the BMD, and could result in underest imation of the true fracture risk. 2) The bone mineral density of the femoral neck is osteopenic. Fracture risk is increased. TIFFANI Ruby POS: JIN
== END 2019-11-17 14:46 | disposition home or self-care (01) ==
LOC: BICMAMMO 14:45
PROVIDERS: ATTEND Internal Medicine Hematology & Oncology
DX: Z13.820 Encounter for screening for osteoporosis (principal); N64.4 Mastodynia; Z85.3 Personal history of malignant neoplasm of breast; M85.859 Other specified disorders of bone density and structure, unspecified thigh; Z78.0 Asymptomatic menopausal state
CPT/HCPCS: 76642; 77066; 77080; G0279

== ENCOUNTER 2020-03-24 06:17 | Outpatient (CLI) | payer MEDICARE ==
[2020-03-24 10:52] LABS: #Eosinphils 0.1 10x3/uL (0.0-0.5); #Monocytes 0.4 10x3/uL (0.0-1.1); #Neutrophils 2.6 10x3/uL (1.5-8.4); %Basophils 0.8 % (0.0-2.0); %Eosinophils 1.6 % (0.0-6.0); %Neutrophils 51.2 % (40.0-75.0); Hemoglobin 13.6 g/dL (12.0-16.0); Mean Corpuscular HGB CONC 33.2 G/DL (32.0-36.0); Mean Corpuscular Hemoglobin 30.9 PG (27.0-33.0); Mean Corpuscular Volume 93.2 fl (80.0-100.0); Mean Platelet Volume 11.3 fl (7.4-10.4); Platelet Count 230 10x3/uL (130-400); RBC Distribution Width 12.1 % (11.5-14.5)
[2020-03-24 11:00] LABS: Bilirubin Neg (Negative); Blood, Urine Negative (Negative); Glucose, Urine (Dipstick) Normal (Negative); Ketone, Urine Negative (Negative); Leukocyte 100 (Negative); Nitrite Negative (Negative); Protein, Urine (Dipstick) Negative (Neg-Trace); Specific Gravity, Urine 1.025 (1.002-1.036); Urobilinogen Normal mg/dL (Less than 2)
[2020-03-24 11:02] LABS: Prothrombin Time 10.3 sec (9.5-12.1)
[2020-03-24 11:03] LABS: Clarity Clear (Clear)
[2020-03-24 11:17] LABS: RBC/HPF 0-3 HPF (0-3)
[2020-03-24 11:18] LABS: Bacteria/HPF 4+ HPF (None Seen); Squamous Epithelial 0-3 HPF (0-3)
[2020-03-24 11:19] LABS: Anion Gap 17 mmol/L (10-20); BUN (Urea Nitrogen) 13 mg/dL (9.8-20.1); Calc. Creatinine Clearance 0 mL/min (70-130); Calcium 10.2 mg/dL (7.8-10.44); Carbon Dioxide 23 mmol/L (23-31); Chloride 105 mmol/L (98-107); Estimated GFR-MDRD 66; Glucose 122 mg/dL (83-110); Potassium 4.6 mmol/L (3.5-5.1); Sodium 140 mmol/L (136-145)
--- NOTE | 2020-03-29 02:20 | EKG ---
Test Reason : PREOP Blood Pressure : / mmHG Vent. Rate : 060 BPM Atrial Rate : 060 BPM P-R Int : 270 ms QRS Dur : 078 ms QT Int : 374 ms P-R-T Axes : 080 031 072 degrees QTc Int : 374 ms Sinus rhythm with 1st degree A-V block Septal infarct , age undetermined Abnormal ECG Confirmed by GRACIELA LEWIS MD ([id number]) on 03/29/2020 2:20:33 AM Referred By: Marii ALVARENGA Confirmed By:GRACIELA LEWIS MD
== END 2020-03-24 06:18 | disposition home or self-care (01) ==
LOC: LABBT 06:17
PROVIDERS: ATTEND Orthopaedic Surgery
DX: Z01.818 Encounter for other preprocedural examination (principal); M17.12 Unilateral primary osteoarthritis, left knee
CPT/HCPCS: 80048; 81001; 85025; 85610; 87081; 93005; 93010

== ENCOUNTER 2020-03-29 06:45 | Observation (INO) | payer MEDICARE ==
[2020-03-29] MEDS ORDERED: Vancomycin 1.5 GRAM/300 ML BAG ONE (07:38)
[2020-03-29] MEDS ORDERED: Tranexamic Acid 1,000 MG/10 ML VIAL ONE (07:38)
[2020-03-29] MEDS ORDERED: Sodium Chloride 0.9% 100 ML ONE (07:38)
[2020-03-29] MEDS ORDERED: Fentanyl 100 MCG/2 ML VIAL ONE ×3 (07:51→10:59)
[2020-03-29] MEDS ORDERED: Midazolam HCl 2 mg/2 ml Vial ONE (07:51)
[2020-03-29] MEDS ORDERED: Fentanyl 100 MCG/2 ML VIAL IV PRN (08:13)
[2020-03-29] MEDS ORDERED: Ropivacaine HCl/PF 250 ML in Premix Bag 1 BAG NERVE BLCK SCH (08:15)
[2020-03-29] MEDS ORDERED: Promethazine HCl 25 MG/ML VIAL IM PRN ×3 (08:15→10:43)
[2020-03-29] MEDS ORDERED: HYDROcodone/Acetaminophen 10/325 mg Tablet PO PRN ×2 (08:15)
[2020-03-29] MEDS ORDERED: Ondansetron PF 4 MG/2 ML Vial IVP PRN ×2 (08:15→08:50)
[2020-03-29] MEDS ORDERED: Zolpidem Tartrate 5 MG TAB PO PRN ×2 (08:15→08:50)
[2020-03-29] MEDS ORDERED: traMADol HCl 50 MG TAB PO PRN ×2 (08:15)
[2020-03-29] MEDS ORDERED: Acetaminophen 325 MG TAB PO PRN (08:50)
[2020-03-29] MEDS ORDERED: diphenhydrAMINE 25 MG CAP PO PRN (08:50)
[2020-03-29] MEDS ORDERED: Aspirin 81 mg Enteric Coated Tablet PO SCH (09:00)
[2020-03-29] MEDS ORDERED: Ropivacaine 0.2% HCl/PF (40 MG/20 ML VIAL) ONE (10:01)
[2020-03-29] MEDS ORDERED: ePHEDrine 50 MG/ML VIAL ONE (10:01)
[2020-03-29] MEDS ORDERED: PROPOFOL 200 MG/20 ML VIAL ONE (10:01)
[2020-03-29] MEDS ORDERED: Bupivacaine HCl 0.5%/Epinephrine 1:200,000/PF 30 ml Vial ONE (10:01)
[2020-03-29] MEDS ORDERED: Ondansetron PF 4 MG/2 ML Vial ONE (10:01)
[2020-03-29] MEDS ORDERED: Lidocaine 1% PF 5 ML VIAL ONE (10:01)
[2020-03-29] MEDS ORDERED: Metoclopramide HCl 10 MG/2 ML VIAL ONE (10:01)
[2020-03-29] MEDS ORDERED: Ondansetron HCl/PF 4 MG/2 ML Vial IVP PRN (10:43)
[2020-03-29] MEDS ORDERED: Promethazine HCl 25 MG/ML VIAL SLOW IVP PRN (10:43)
--- NOTE | 2020-03-29 11:48 | OP ---
DATE OF PROCEDURE: 03/29/2020 TITLE OF PROCEDURE: Left total knee arthroplasty using [employer] 4 femur, 3 tibia, 9-mm CS X3 polyethylene, and A29 patella. HEALTH AIDE: Fredo Moralez PA-C BLOOD LOSS: Minimal. SPECIMENS: None. DRAINS: None. COMPLICATIONS: None. The assistant professor of mathematics/co-surgeon was present through the entire procedure and was responsible for providing exposure, tissue retraction and any necessary limb or tissue manipulation required to obtain necessary reduction or hardware placement. The assistant professor of mathematics/co-surgeon also provided bleeding control, tissue closure, and suturing in conjunction with the primary surgeon. DESCRIPTION OF PROCEDURE: After appropriate consent was obtained, the patient was taken to the operating room, where spinal anesthesia was induced. The patient received Ancef prior to beginning the surgical procedure. The left leg was placed in the tourniquet and prepped and draped in the usual sterile fashion. After exsanguination, the tourniquet was inflated to 300 mmHg. A longitudinal incision was made over the patella, hemostasis was obtained and dissection was carried down to the retinaculum. The medial parapatellar arthrotomy was performed and the patella was then everted and the knee was flexed. The meniscus tissue was excised. The intramedullary canal was opened with a drill. The distal femoral cutting guide was keyed off the intramedullary guide. The distal femoral cut was made with the oscillating saw after appropriate alignment had been confirmed. The #2 guide was then used to drill holes in the distal femur for placement of further guides. The femur was sized and found to be that the 4 was the most appropriate size. The anterior chamfer and posterior cut were made, followed by the posterior chamber and anterior cut. The 4 femoral trial was placed on the femur and showed good fit. The femoral trial was then removed and attention was then turned to the tibia, where the 3:1 tibial guide was placed. This was aligned using the drill bit along with the malleoli. A 4 mm cut was keyed off the medial side of the tibia. The proximal tibial cutting guide was affixed to bone using drill pins. The Cobra retractors were used to protect the contents of the popliteal canal and an oscillating saw was used to resect the proximal. The tibia was sized and found the 3 was the most appropriate size. A trial reduction was performed, which showed good mediolateral stability and full extension with the 9-mm plastic spacer. The patella was everted and the oscillating saw was used to cut the patella. The osteophytes were removed as needed. The patella was sized and the A29 was found to be the most appropriate size. The patella was then drilled and the A29 patellar button trial was placed on the patella. The knee was put through a range of motion and there was no need for a lateral release. There was good tracking of the patella. After this was complete, the patella trial was removed. The femur was drilled and the proximal tibia was punched with the cruciate chisel. Copious irrigation was then performed over all bone ends. The bones were meticulously dried and free of debris. Tobramycin treated cement was then used to cement in the 3 tibia with a 9-mm spacer, the 4 femur and all-plastic patella. After cement had cured, care was taken to make sure that all extraneous cement had been removed. Copious irrigation was performed again using irrigant and pulsatile lavage. The tracking was checked once again and tracking was appropriate. The Shirlene drain was placed in the knee. The retinaculum was repaired using #1 Vicryl. The subcutaneous tissues were closed with 2-0 Vicryl and the skin was closed with vipin. A sterile dressing was applied. The drain was connected and the patient was placed in a knee immobilizer. There were no complications. Job ID: [id number]
--- NOTE | 2020-03-29 11:51 | RAD ---
LEFT KNEE 2 VIEWS: HISTORY: Postop total knee arthroplasty. FINDINGS/IMPRESSION: Recent total knee arthroplasty changes with no evidence for dislocation or periprosthetic fracture. POS: [facility]
[2020-03-29] MEDS ORDERED: Ketorolac Tromethamine 30 MG/ML VIAL IVP SCH (12:00)
[2020-03-29] MEDS ORDERED: Promethazine HCl 25 MG/ML VIAL ONE (13:24)
[2020-03-29] MEDS: Atenolol 25 MG TAB PO SCH ×2 (13:36→21:15)
[2020-03-29] MEDS: Flecainide 50 MG TAB PO SCH ×2 (13:36→22:35)
[2020-03-29] MEDS: Anastrozole 1 MG TAB PO SCH (13:36)
[2020-03-29] MEDS ORDERED: Ketorolac Tromethamine 30 MG/ML VIAL ONE (14:13)
[2020-03-29] MEDS: Ketorolac Tromethamine 30 MG/ML VIAL IVP SCH ×2 (14:15→21:06)
[2020-03-29] MEDS: Sodium Chloride 0.9% 1,000 ML IV SCH ×2 (14:16→18:06)
[2020-03-29] MEDS: Ferrous Gluconate 324 MG TAB PO SCH ×2 (17:40→21:15)
[2020-03-29] MEDS: Aspirin 81 mg Enteric Coated Tablet PO SCH ×2 (17:40→22:35)
[2020-03-29] MEDS: Senokot S 8.6-50 MG TAB PO SCH ×2 (17:40→22:30)
[2020-03-29] MEDS: CEFAZOLIN 2 GM in Premix Bag 1 BAG IVPB SCH (17:40)
[2020-03-29] MEDS: Glimepiride 2 MG TAB PO SCH (17:49)
[2020-03-29] MEDS: Multivitamin W/ Minerals 1 TAB PO SCH (17:49)
[2020-03-29] MEDS: metFORMIN 500 MG TAB PO SCH (17:51)
[2020-03-29] MEDS ORDERED: HumaLOG 300 UNITS/3 ML VIAL SC PRN (22:17)
[2020-03-29] MEDS ORDERED: Dextrose 5% in Water 1,000 ML IV PRN (22:17)
[2020-03-29] MEDS ORDERED: Dextrose 50% Abboject 50 ML SYRINGE SLOW IVP PRN (22:17)
[2020-03-29] MEDS: Latanoprost 0.005% Ophth Soln 2.5 ml Bottle EA EYE SCH (22:34)
[2020-03-30] MEDS: CEFAZOLIN 2 GM in Premix Bag 1 BAG IVPB SCH (01:17)
[2020-03-30] MEDS: Ketorolac Tromethamine 30 MG/ML VIAL IVP SCH ×4 (03:21→20:59)
[2020-03-30 06:00] LABS: Hemoglobin 11.4 g/dL (12.0-16.0); Mean Corpuscular HGB CONC 34.5 g/dL (32.0-36.0); Mean Corpuscular Hemoglobin 32.4 pg (27.0-31.0); Mean Corpuscular Volume 93.9 fL (78.0-98.0); Mean Platelet Volume 8.4 fL (7.4-10.4); Platelet Count 164 thou/uL (130-400); RBC Distribution Width 11.4 % (11.5-14.5); Red Blood Cell (RBC) Count 3.52 mill/uL (4.20-5.40)
[2020-03-30] MEDS: Sodium Chloride 0.9% 1,000 ML IV SCH ×2 (07:20→14:50)
[2020-03-30] MEDS: HumaLOG 300 UNITS/3 ML VIAL SC PRN ×2 (07:25→12:37)
[2020-03-30] MEDS: Senokot S 8.6-50 MG TAB PO SCH ×2 (08:52→20:58)
[2020-03-30] MEDS: metFORMIN 500 MG TAB PO SCH ×2 (08:52→18:43)
[2020-03-30] MEDS: Aspirin 81 mg Enteric Coated Tablet PO SCH ×2 (08:52→20:59)
[2020-03-30] MEDS: Vit A,C & E/Lutein/Minerals Tablet PO SCH (08:53)
[2020-03-30] MEDS: Losartan 25 MG TAB PO SCH (08:53)
[2020-03-30] MEDS: Ferrous Gluconate 324 MG TAB PO SCH ×2 (08:54→20:58)
[2020-03-30] MEDS: Ubidecarenone 50 MG CAP PO SCH (08:54)
[2020-03-30] MEDS: Cholecalciferol 1,000 UNITS (25 MCG) TAB PO SCH (08:55)
[2020-03-30] MEDS: Flecainide 50 MG TAB PO SCH ×2 (08:57→21:00)
[2020-03-30] MEDS: Multivitamin W/ Minerals 1 TAB PO SCH (08:57)
[2020-03-30] MEDS: Atenolol 25 MG TAB PO SCH ×2 (08:58→20:58)
[2020-03-30] MEDS: Loratadine 10 MG TAB PO SCH (08:58)
[2020-03-30 11:42] VITALS: BMI 28.1
[2020-03-30] MEDS: Glimepiride 2 MG TAB PO SCH (12:36)
[2020-03-30] MEDS: Anastrozole 1 MG TAB PO SCH (12:36)
[2020-03-30] MEDS: Latanoprost 0.005% Ophth Soln 2.5 ml Bottle EA EYE SCH (21:00)
[2020-03-31] MEDS: Ketorolac Tromethamine 30 MG/ML VIAL IVP SCH ×2 (02:07→09:31)
[2020-03-31] MEDS: Sodium Chloride 0.9% 1,000 ML IV SCH ×2 (02:07→11:00)
[2020-03-31] MEDS: metFORMIN 500 MG TAB PO SCH (09:32)
[2020-03-31] MEDS: Senokot S 8.6-50 MG TAB PO SCH (09:37)
[2020-03-31] MEDS: Atenolol 25 MG TAB PO SCH (09:37)
[2020-03-31] MEDS: Aspirin 81 mg Enteric Coated Tablet PO SCH (09:37)
[2020-03-31] MEDS: Losartan 25 MG TAB PO SCH (09:38)
[2020-03-31] MEDS: Ubidecarenone 50 MG CAP PO SCH (09:38)
[2020-03-31] MEDS: Loratadine 10 MG TAB PO SCH (09:38)
[2020-03-31] MEDS: Ferrous Gluconate 324 MG TAB PO SCH (09:39)
[2020-03-31] MEDS: Vit A,C & E/Lutein/Minerals Tablet PO SCH (09:39)
[2020-03-31] MEDS: Multivitamin W/ Minerals 1 TAB PO SCH (09:39)
[2020-03-31] MEDS: Cholecalciferol 1,000 UNITS (25 MCG) TAB PO SCH (09:41)
[2020-03-31] MEDS: Flecainide 50 MG TAB PO SCH (09:41)
[2020-03-31] MEDS: Glimepiride 2 MG TAB PO SCH (10:25)
[2020-03-31] MEDS: Anastrozole 1 MG TAB PO SCH (10:25)
[2020-03-31] MEDS: HumaLOG 300 UNITS/3 ML VIAL SC PRN (11:11)
[2020-03-31 11:40] VITALS: BP 163/49; TEMP 98
--- NOTE | 2020-04-01 13:49 | DIS ---
DATE OF ADMISSION: 03/29/2020 DATE OF DISCHARGE: 03/31/2020 This is Fredo Moralez PA-C dictating a report for Kai Tay MD. PREOPERATIVE DIAGNOSIS: Left knee osteoarthritis/degenerative joint disease. POSTOPERATIVE DIAGNOSIS: Left knee osteoarthritis/degenerative joint disease. PROCEDURE: Patient underwent a left total knee replacement. HOSPITAL COURSE: Hospital stay unremarkable. The patient was admitted to [address], where they worked with staff, Physical Therapy, Occupational Therapy, did quite well. By postop day #2, patient was ready to discharge home. DISCHARGE CONDITION: Good/stable. DISPOSITION: Home with family. FOLLOWUP: Would be in 2 to 4 weeks or sooner if there are problems or concerns. DISCHARGE MEDICATIONS: Given with usage instructions. Job ID: [id number]
== END 2020-03-31 13:35 | disposition home or self-care (01) ==
LOC: SDC 06:45 → EDSTATUS 08:15 → SURG B 08:50 → INTOOBSV 08:50
PROVIDERS: ADMIT Orthopaedic Surgery; ATTEND Orthopaedic Surgery
PROC: 0SRD0J9 Replacement of Left Knee Joint with Synthetic Substitute, Cemented, Open Approach (ICD-10-PCS; principal; 2020-03-29)
PROC: 3E0T3BZ Introduction of Anesthetic Agent into Peripheral Nerves and Plexi, Percutaneous Approach (ICD-10-PCS; 2020-03-29)
PROC: 3E0T3BZ Introduction of Anesthetic Agent into Peripheral Nerves and Plexi, Percutaneous Approach (ICD-10-PCS; 2020-03-29)
DX: M17.12 Unilateral primary osteoarthritis, left knee (principal); G89.18 Other acute postprocedural pain; I10 Essential (primary) hypertension; E78.5 Hyperlipidemia, unspecified; E11.9 Type 2 diabetes mellitus without complications; K21.9 Gastro-esophageal reflux disease without esophagitis; I48.91 Unspecified atrial fibrillation; F41.9 Anxiety disorder, unspecified; Z79.811 Long term (current) use of aromatase inhibitors; Z79.82 Long term (current) use of aspirin; Z79.84 Long term (current) use of oral hypoglycemic drugs; Z79.899 Other long term (current) drug therapy; Z88.8 Allergy status to other drugs, medicaments and biological substances; Z91.012 Allergy to eggs; Z96.651 Presence of right artificial knee joint
CPT/HCPCS: 27447; 64445; 64448; 73560; 82962 ×2; 85027; 97110 ×3; 97116 ×3; 97139 ×3; 97530 ×2; C1713; C1776; 36415; 36416; 96374; 96375; 96376; G0378; J0690; J1885; J2250; J2405; J2550; J2704; J2765; J2795; J3010; J3370; J3490

== ENCOUNTER 2020-04-21 08:56 | Outpatient (CLI) | payer MEDICARE ==
--- NOTE | 2020-04-21 10:50 | RAD ---
PA AND LATERAL VIEWS CHEST: HISTORY: Dyspnea. FINDINGS: Comparison is made with the exam of 11/11/2019. The heart size is normal. The lungs are expanded with stable mild chronic changes. No lobar consoli dation, pneumothoraces, or pleural effusions are seen. There are degenerative changes in the spine. IMPRESSION: No radiographic evidence of acute cardiopulmonary process. POS: AH
== END 2020-04-21 08:57 | disposition home or self-care (01) ==
LOC: BICRAD 08:56
PROVIDERS: ATTEND Internal Medicine Critical Care Medicine
DX: R06.00 Dyspnea, unspecified (principal)
CPT/HCPCS: 71046

== ENCOUNTER 2020-10-05 10:04 | Outpatient (CLI) | payer MEDICARE | END 2020-10-05 10:05 | disposition home or self-care (01) | LOC: BICRAD 10:04 | PROVIDERS: ATTEND Family Medicine | DX: M47.816 Spondylosis without myelopathy or radiculopathy, lumbar region (principal); G89.4 Chronic pain syndrome; M41.9 Scoliosis, unspecified | CPT/HCPCS: 72100 ==

== ENCOUNTER 2020-11-17 10:08 | Outpatient (CLI) | payer MEDICARE | END 2020-11-17 10:09 | disposition home or self-care (01) | LOC: BICMAMMO 10:08 | PROVIDERS: ATTEND Internal Medicine Hematology & Oncology | DX: Z12.31 Encounter for screening mammogram for malignant neoplasm of breast (principal); M85.89 Other specified disorders of bone density and structure, multiple sites; Z80.3 Family history of malignant neoplasm of breast; Z91.89 Other specified personal risk factors, not elsewhere classified; Z98.890 Other specified postprocedural states | CPT/HCPCS: 77063; 77067; 77080 ==

== ENCOUNTER 2021-01-18 09:53 | Outpatient (CLI) | payer MEDICARE | END 2021-01-18 09:54 | disposition home or self-care (01) | LOC: BICRAD 09:53 | PROVIDERS: ATTEND Internal Medicine Critical Care Medicine | DX: R06.00 Dyspnea, unspecified (principal) | CPT/HCPCS: 71046 ==

== ENCOUNTER 2021-11-20 10:57 | Outpatient (CLI) | payer MEDICARE, BC | END 2021-11-20 10:58 | disposition home or self-care (01) | LOC: BICMAMMO 10:57 | PROVIDERS: ATTEND Internal Medicine Hematology & Oncology | DX: Z12.31 Encounter for screening mammogram for malignant neoplasm of breast (principal); Z85.3 Personal history of malignant neoplasm of breast; Z80.3 Family history of malignant neoplasm of breast | CPT/HCPCS: 77063; 77067 ==

== ENCOUNTER 2022-01-16 08:15 | Outpatient (CLI) | payer MEDICARE, BC | END 2022-01-16 08:16 | disposition home or self-care (01) | LOC: RAD 08:15 | PROVIDERS: ATTEND Internal Medicine Critical Care Medicine | DX: R06.00 Dyspnea, unspecified (principal) | CPT/HCPCS: 71046 ==

== ENCOUNTER 2022-04-18 10:05 | Outpatient (CLI) | payer MEDICARE, BC | END 2022-04-18 10:06 | disposition home or self-care (01) | LOC: SCSMRI 10:05 | PROVIDERS: ATTEND Family Medicine | DX: M25.511 Pain in right shoulder (principal); S46.211A Strain of muscle, fascia and tendon of other parts of biceps, right arm, initial encounter; M19.011 Primary osteoarthritis, right shoulder; M25.711 Osteophyte, right shoulder; M75.122 Complete rotator cuff tear or rupture of left shoulder, not specified as traumatic; S46.912A Strain of unspecified muscle, fascia and tendon at shoulder and upper arm level, left arm, initial encounter; S43.432A Superior glenoid labrum lesion of left shoulder, initial encounter; M75.92 Shoulder lesion, unspecified, left shoulder; Z85.3 Personal history of malignant neoplasm of breast ==

== ENCOUNTER 2022-05-02 09:26 | Outpatient (CLI) | payer MEDICARE, BC | END 2022-05-02 09:27 | disposition home or self-care (01) | LOC: BICRAD 09:26 | PROVIDERS: ATTEND Family Medicine | DX: R10.9 Unspecified abdominal pain (principal) ==

== ENCOUNTER 2022-06-22 13:07 | Outpatient (CLI) | payer MEDICARE, BC ==
[2022-06-22 14:50] LABS: #Basophils 0.1 10x3/uL (0.0-0.2); #Eosinphils 0.1 10x3/uL (0.0-0.5); #Monocytes 0.4 10x3/uL (0.0-1.1); #Neutrophils 3.6 10x3/uL (1.5-8.4); %Basophils 1.1 % (0.0-2.0); %Eosinophils 1.7 % (0.0-6.0); %Lymphocytes 36.7 % (18.0-47.0); %Monocytes 6.3 % (0.0-10.0); Hemoglobin 13.9 g/dL (12.0-15.5); Mean Corpuscular HGB CONC 33.7 g/dL (32.0-36.0); Mean Corpuscular Hemoglobin 31.7 pg (27.0-33.0); Mean Corpuscular Volume 94.1 fl (81.6-98.3); Mean Platelet Volume 11.2 fl (7.4-10.4); Platelet Count 249 10x3/uL (150-450); RBC Distribution Width 11.9 % (11.5-14.5); Red Blood Cell (RBC) Count 4.38 10x6/uL (3.90-5.03); White Blood Cell (WBC) Count 6.6 10x3/uL (3.5-10.5)
[2022-06-22 14:59] LABS: INR-International Normal Ratio 0.9; Prothrombin Time 10.1 sec (9.5-12.1)
[2022-06-22 15:02] LABS: Anion Gap 15 mmol/L (10-20); BUN (Urea Nitrogen) 17 mg/dL (9.8-20.1); Calc. Creatinine Clearance 0 mL/min (70-130); Carbon Dioxide 25 mmol/L (23-31); Chloride 106 mmol/L (98-107); Estimated GFR 56; Glucose 142 mg/dL (83-110); Potassium 4.6 mmol/L (3.5-5.1); Sodium 141 mmol/L (136-145)
== END 2022-06-22 13:08 | disposition home or self-care (01) ==
LOC: LABBT 13:07
PROVIDERS: ATTEND Orthopaedic Surgery
DX: Z01.818 Encounter for other preprocedural examination (principal); M16.12 Unilateral primary osteoarthritis, left hip
CPT/HCPCS: 80048; 85025; 85610; 87081; 93005; 93010

== ENCOUNTER 2022-06-26 09:55 | Observation (INO) | payer MEDICARE, BC ==
[2022-06-25 09:35] VITALS: BMI 26.4
[2022-06-26] MEDS ORDERED: Sodium Chloride 0.9% 100 ML ONE ×2 (10:43→12:17)
[2022-06-26] MEDS ORDERED: Tranexamic Acid 1,000 MG/10 ML VIAL ONE (10:43)
[2022-06-26] MEDS ORDERED: Vancomycin 1 GM/200 ML (FROZEN) BAG ONE (10:43)
[2022-06-26 11:08] LABS: SARS-CoV-2 NAA Rapid Test Not Detected (NotDetected)
[2022-06-26] MEDS ORDERED: Midazolam HCl 2 mg/2 ml Vial ONE (11:08)
[2022-06-26] MEDS ORDERED: Fentanyl 100 MCG/2 ML VIAL ONE (11:08)
[2022-06-26] MEDS ORDERED: Ropivacaine 0.5% HCl/PF (150 MG/30 ML VIAL) ONE (11:08)
[2022-06-26] MEDS ORDERED: CEFAZOLIN 2 GM VIAL ONE (12:17)
[2022-06-26] MEDS ORDERED: fentaNYL PF 100 MCG/2 ML SYRINGE ONE (12:24)
[2022-06-26] MEDS ORDERED: Famotidine/PF 20 mg/2ml Vial ONE (12:24)
[2022-06-26] MEDS ORDERED: PHENYLEPHRINE-NS 100 MCG/ML 10 ML SYRINGE ONE (12:38)
[2022-06-26] MEDS ORDERED: Metoclopramide HCl 10 MG/2 ML VIAL ONE (12:38)
[2022-06-26] MEDS ORDERED: Ondansetron PF 4 MG/2 ML Vial ONE (12:38)
[2022-06-26] MEDS ORDERED: Dexamethasone 20 MG/5 ML VIAL ONE (12:38)
[2022-06-26] MEDS ORDERED: Lidocaine 1% PF 5 ML VIAL ONE (12:38)
[2022-06-26] MEDS ORDERED: Ondansetron PF 4 MG/2 ML Vial IVP PRN (14:19)
[2022-06-26] MEDS ORDERED: Zolpidem Tartrate 5 MG TAB PO PRN (14:19)
[2022-06-26] MEDS ORDERED: Fentanyl 100 MCG/2 ML VIAL SLOW IVP PRN (14:19)
[2022-06-26] MEDS ORDERED: Promethazine HCl 25 MG/ML VIAL IM PRN ×2 (14:19→14:31)
[2022-06-26] MEDS ORDERED: HYDROcodone/Acetaminophen 10/325 mg Tablet PO PRN (14:19)
[2022-06-26] MEDS ORDERED: Acetaminophen 325 MG TAB PO PRN (14:19)
[2022-06-26] MEDS ORDERED: diphenhydrAMINE 25 MG CAP PO PRN (14:19)
[2022-06-26] MEDS ORDERED: Ondansetron HCl/PF 4 MG/2 ML Vial IVP PRN (14:31)
[2022-06-26] MEDS ORDERED: Bupivacaine PF 0.5% 30 ML VIAL ONE (14:38)
[2022-06-26] MEDS: Sodium Chloride 0.9% 1,000 ML IV SCH ×2 (16:00→23:48)
[2022-06-26] MEDS: HYDROcodone/Acetaminophen 10/325 mg Tablet PO PRN ×2 (17:05→21:06)
[2022-06-26] MEDS: metFORMIN 500 MG TAB PO SCH (17:05)
[2022-06-26] MEDS ORDERED: Latanoprost 0.005% Ophth Soln 2.5 ml Bottle EA EYE SCH (21:00)
[2022-06-26] MEDS ORDERED: Rosuvastatin 10 MG TAB PO SCH (21:00)
[2022-06-26] MEDS: CEFAZOLIN 2 GM in Sodium Chloride 0.9% 100 ML IVPB SCH (21:04)
[2022-06-26] MEDS: Ketorolac Tromethamine 30 MG/ML VIAL IVP SCH (21:05)
[2022-06-26] MEDS: Atenolol 25 MG TAB PO SCH (21:07)
[2022-06-26] MEDS: Aspirin 81 mg Enteric Coated Tablet PO SCH (21:08)
[2022-06-26] MEDS: Flecainide 50 MG TAB PO SCH (21:08)
[2022-06-27] MEDS: HYDROcodone/Acetaminophen 10/325 mg Tablet PO PRN ×2 (03:18→09:07)
[2022-06-27 04:58] VITALS: TEMP 97.8
[2022-06-27] MEDS: CEFAZOLIN 2 GM in Sodium Chloride 0.9% 100 ML IVPB SCH (05:19)
[2022-06-27] MEDS: Ketorolac Tromethamine 30 MG/ML VIAL IVP SCH (05:20)
[2022-06-27 05:23] LABS: Mean Corpuscular Hemoglobin 32.5 pg (27.0-31.0); Mean Corpuscular Volume 95.7 fl (78.0-98.0); Mean Platelet Volume 8.5 fL (7.4-10.4); Platelet Count 178 10x3/uL (130-400); White Blood Cell (WBC) Count 11.8 10x3/uL (4.8-10.8)
[2022-06-27] MEDS: Atenolol 25 MG TAB PO SCH (08:53)
[2022-06-27] MEDS: Aspirin 81 mg Enteric Coated Tablet PO SCH (08:53)
[2022-06-27] MEDS: metFORMIN 500 MG TAB PO SCH (08:53)
[2022-06-27] MEDS: Flecainide 50 MG TAB PO SCH (08:55)
[2022-06-27] MEDS ORDERED: Senokot S 8.6-50 MG TAB PO SCH (09:00)
[2022-06-27] MEDS ORDERED: Loratadine 10 MG TAB PO SCH (09:00)
[2022-06-27] MEDS ORDERED: CO Q-10 CAPSULE 100 MG PO SCH (09:00)
[2022-06-27] MEDS ORDERED: Aspirin 81 mg Enteric Coated Tablet PO SCH (09:00)
[2022-06-27] MEDS ORDERED: Glimepiride 2 MG TAB PO SCH (09:00)
[2022-06-27] MEDS ORDERED: Ferrous Gluconate 324 MG TAB PO SCH (09:00)
[2022-06-27] MEDS ORDERED: Cholecalciferol 1,000 UNITS (25 MCG) TAB PO SCH (09:00)
[2022-06-27] MEDS ORDERED: Multivitamin W/ Minerals 1 TAB PO SCH (09:00)
[2022-06-27] MEDS ORDERED: Losartan 25 MG TAB PO SCH (09:00)
[2022-06-27 10:53] VITALS: BP 153/69
== END 2022-06-27 11:30 | disposition home or self-care (01) ==
LOC: SDC 09:55 → SJJU 15:33
PROVIDERS: ADMIT Orthopaedic Surgery; ATTEND Orthopaedic Surgery
PROC: 0SRB04A Replacement of Left Hip Joint with Ceramic on Polyethylene Synthetic Substitute, Uncemented, Open Approach (ICD-10-PCS; principal; 2022-06-26)
DX: M16.12 Unilateral primary osteoarthritis, left hip (principal); I10 Essential (primary) hypertension; E78.5 Hyperlipidemia, unspecified; I48.91 Unspecified atrial fibrillation; E11.9 Type 2 diabetes mellitus without complications; K21.9 Gastro-esophageal reflux disease without esophagitis; Z85.3 Personal history of malignant neoplasm of breast; Z79.82 Long term (current) use of aspirin; Z79.84 Long term (current) use of oral hypoglycemic drugs; Z79.899 Other long term (current) drug therapy; Z88.4 Allergy status to anesthetic agent; Z91.012 Allergy to eggs; Z96.653 Presence of artificial knee joint, bilateral; Z20.822 Contact with and (suspected) exposure to COVID-19
CPT/HCPCS: 27130; 73502; 82962; 85027; 97116; 97530; 97535; C1776; J3370; U0002; 36415; 36416; 96365; 96366; 96375; 96376; G0378; J1100; J1885; J2250; J2405; J2765; J2795; J3010; J3490; J7050; S0020; S0028

== ENCOUNTER 2022-06-28 03:27 | Inpatient (IN) | payer MEDICARE, BC ==
[2022-06-28] MEDS ORDERED: oxyCODONE/Acetaminophen 5 mg/325 mg Tablet PO SCH (04:15)
[2022-06-28] MEDS ORDERED: Ondansetron PF 4 MG/2 ML Vial IVP PRN (07:15)
[2022-06-28] MEDS ORDERED: Ondansetron ODT 4 MG TAB SL PRN (07:15)
[2022-06-28 08:13] VITALS: BMI 26.4
[2022-06-28] MEDS: Ketorolac Tromethamine 30 MG/ML VIAL IVP PRN ×2 (08:42→17:50)
[2022-06-28] MEDS: Gabapentin 100 MG CAP PO SCH ×2 (08:43→15:01)
[2022-06-28] MEDS ORDERED: oxyCODONE/Acetaminophen 5 mg/325 mg Tablet PO PRN (08:45)
[2022-06-28] MEDS ORDERED: Dextrose 5% in Water 1,000 ML IV PRN (09:43)
[2022-06-28] MEDS ORDERED: Dextrose 50% Abboject 50 ML SYRINGE SLOW IVP PRN (09:43)
[2022-06-28] MEDS ORDERED: HYDROcodone/Acetaminophen 10/325 mg Tablet PO PRN ×2 (09:46)
[2022-06-28] MEDS ORDERED: Fentanyl 100 MCG/2 ML VIAL SLOW IVP PRN (09:47)
[2022-06-28 09:49] LABS: #Lymphocytes 1.5 thou/uL (1.20-3.40); #Monocytes 0.6 thou/uL (0.11-0.59); #Neutrophils 5.9 thou/uL (1.40-6.50); %Basophils 0.3 % (0.0-1.0); %Eosinophils 0.4 % (0.0-10.0); %Lymphocytes 18.8 % (21.0-51.0); %Monocytes 7.3 % (0.0-10.0); %Neutrophils 73.2 % (42.0-75.0); Hemoglobin 11.2 g/dL (12.0-16.0); Mean Corpuscular HGB CONC 32.6 g/dL (32.0-36.0); Mean Corpuscular Hemoglobin 31.1 pg (27.0-31.0); Mean Corpuscular Volume 95.4 fl (78.0-98.0); Mean Platelet Volume 8.4 fL (7.4-10.4); Platelet Count 158 10x3/uL (130-400); RBC Distribution Width 11.2 % (11.5-14.5); White Blood Cell (WBC) Count 8.1 10x3/uL (4.8-10.8)
[2022-06-28 10:11] LABS: Anion Gap 13 mmol/L (10-20); BUN (Urea Nitrogen) 11 mg/dL (9.8-20.1); Calc. Creatinine Clearance 83 mL/min (70-130); Calcium 9.8 mg/dL (7.8-10.44); Carbon Dioxide 20 mmol/L (23-31); Chloride 106 mmol/L (98-107); Estimated GFR 88; Glucose 262 mg/dL (83-110); Potassium 3.8 mmol/L (3.5-5.1); Sodium 135 mmol/L (136-145)
[2022-06-28] MEDS ORDERED: Ascorbic Acid 500 mg Chewable Tablet PO SCH (12:00)
[2022-06-28] MEDS ORDERED: Aspirin 81 mg Enteric Coated Tablet PO SCH (12:00)
[2022-06-28] MEDS ORDERED: metFORMIN 500 MG TAB PO SCH (12:00)
[2022-06-28] MEDS ORDERED: Atenolol 25 MG TAB PO SCH (12:00)
[2022-06-28] MEDS ORDERED: Glimepiride 2 MG TAB PO SCH (12:00)
[2022-06-28] MEDS ORDERED: Flecainide 50 MG TAB PO SCH (12:00)
[2022-06-28] MEDS: metFORMIN 500 MG TAB PO SCH (17:49)
[2022-06-28] MEDS: HumaLOG 300 UNITS/3 ML VIAL SC PRN (17:53)
[2022-06-28] MEDS: Aspirin 81 mg Enteric Coated Tablet PO SCH (21:18)
[2022-06-28] MEDS: Ascorbic Acid 500 mg Chewable Tablet PO SCH (21:19)
[2022-06-28] MEDS: Rosuvastatin 10 MG TAB PO SCH (21:19)
[2022-06-28] MEDS: Atenolol 25 MG TAB PO SCH (21:19)
[2022-06-28] MEDS: Flecainide 50 MG TAB PO SCH (21:19)
[2022-06-28] MEDS: Latanoprost 0.005% Ophth Soln 2.5 ml Bottle EA EYE SCH (21:20)
[2022-06-29] MEDS: HYDROcodone/Acetaminophen 10/325 mg Tablet PO PRN ×3 (02:30→17:07)
[2022-06-29] MEDS ORDERED: Polyethylene Glycol 3350 17 GM Packet PO PRN (08:02)
[2022-06-29] MEDS: Ascorbic Acid 500 mg Chewable Tablet PO SCH ×2 (09:48→21:19)
[2022-06-29] MEDS: Cholecalciferol 1,000 UNITS (25 MCG) TAB PO SCH (09:49)
[2022-06-29] MEDS: Flecainide 50 MG TAB PO SCH ×2 (09:49→21:20)
[2022-06-29] MEDS: CO Q-10 CAPSULE 100 MG PO SCH (09:49)
[2022-06-29] MEDS: Loratadine 10 MG TAB PO SCH (09:49)
[2022-06-29] MEDS: Senokot S 8.6-50 MG TAB PO SCH ×2 (09:49→21:19)
[2022-06-29] MEDS: Atenolol 25 MG TAB PO SCH ×2 (09:50→21:19)
[2022-06-29] MEDS: Aspirin 81 mg Enteric Coated Tablet PO SCH ×2 (09:51→21:19)
[2022-06-29] MEDS: metFORMIN 500 MG TAB PO SCH ×2 (09:51→17:07)
[2022-06-29] MEDS: Losartan 25 MG TAB PO SCH (09:51)
[2022-06-29] MEDS: Glimepiride 2 MG TAB PO SCH (09:55)
[2022-06-29] MEDS: Rosuvastatin 10 MG TAB PO SCH (21:19)
[2022-06-29] MEDS: Latanoprost 0.005% Ophth Soln 2.5 ml Bottle EA EYE SCH (21:21)
[2022-06-30] MEDS: HYDROcodone/Acetaminophen 10/325 mg Tablet PO PRN ×3 (03:34→20:28)
[2022-06-30] MEDS: HumaLOG 300 UNITS/3 ML VIAL SC PRN (06:49)
[2022-06-30] MEDS: Glimepiride 2 MG TAB PO SCH (06:50)
[2022-06-30] MEDS: Ascorbic Acid 500 mg Chewable Tablet PO SCH ×2 (08:50→20:11)
[2022-06-30] MEDS: Loratadine 10 MG TAB PO SCH (08:50)
[2022-06-30] MEDS: Flecainide 50 MG TAB PO SCH ×2 (08:50→20:11)
[2022-06-30] MEDS: Senokot S 8.6-50 MG TAB PO SCH ×2 (08:50→20:10)
[2022-06-30] MEDS: Aspirin 81 mg Enteric Coated Tablet PO SCH ×2 (08:50→20:10)
[2022-06-30] MEDS: CO Q-10 CAPSULE 100 MG PO SCH (08:51)
[2022-06-30] MEDS: metFORMIN 500 MG TAB PO SCH ×2 (08:51→17:50)
[2022-06-30] MEDS: Cholecalciferol 1,000 UNITS (25 MCG) TAB PO SCH (08:51)
[2022-06-30] MEDS: Atenolol 25 MG TAB PO SCH ×2 (12:33→20:10)
[2022-06-30] MEDS: Losartan 25 MG TAB PO SCH (12:34)
[2022-06-30] MEDS: Latanoprost 0.005% Ophth Soln 2.5 ml Bottle EA EYE SCH (20:10)
[2022-06-30] MEDS: Rosuvastatin 10 MG TAB PO SCH (20:11)
[2022-07-01] MEDS: HYDROcodone/Acetaminophen 10/325 mg Tablet PO PRN ×4 (00:20→21:02)
[2022-07-01] MEDS: Glimepiride 2 MG TAB PO SCH (05:51)
[2022-07-01] MEDS: CO Q-10 CAPSULE 100 MG PO SCH (08:28)
[2022-07-01] MEDS: Cholecalciferol 1,000 UNITS (25 MCG) TAB PO SCH (08:28)
[2022-07-01] MEDS: Atenolol 25 MG TAB PO SCH ×2 (08:28→21:01)
[2022-07-01] MEDS: metFORMIN 500 MG TAB PO SCH ×2 (08:29→17:09)
[2022-07-01] MEDS: Losartan 25 MG TAB PO SCH (08:29)
[2022-07-01] MEDS: Aspirin 81 mg Enteric Coated Tablet PO SCH ×2 (08:29→21:01)
[2022-07-01] MEDS: Senokot S 8.6-50 MG TAB PO SCH ×2 (08:29→21:01)
[2022-07-01] MEDS: Ascorbic Acid 500 mg Chewable Tablet PO SCH ×2 (08:29→21:01)
[2022-07-01] MEDS: Loratadine 10 MG TAB PO SCH (08:29)
[2022-07-01] MEDS: Flecainide 50 MG TAB PO SCH ×2 (08:30→21:01)
[2022-07-01] MEDS: Latanoprost 0.005% Ophth Soln 2.5 ml Bottle EA EYE SCH (21:00)
[2022-07-01] MEDS: Rosuvastatin 10 MG TAB PO SCH (21:02)
[2022-07-02] MEDS: HYDROcodone/Acetaminophen 10/325 mg Tablet PO PRN (03:52)
[2022-07-02] MEDS: Glimepiride 2 MG TAB PO SCH (05:44)
[2022-07-02 07:55] VITALS: TEMP 97.9
[2022-07-02] MEDS: Atenolol 25 MG TAB PO SCH (09:14)
[2022-07-02] MEDS: metFORMIN 500 MG TAB PO SCH (09:15)
[2022-07-02] MEDS: Losartan 25 MG TAB PO SCH (09:15)
[2022-07-02] MEDS: Cholecalciferol 1,000 UNITS (25 MCG) TAB PO SCH (09:15)
[2022-07-02] MEDS: CO Q-10 CAPSULE 100 MG PO SCH (09:15)
[2022-07-02] MEDS: Aspirin 81 mg Enteric Coated Tablet PO SCH (09:15)
[2022-07-02] MEDS: Senokot S 8.6-50 MG TAB PO SCH (09:15)
[2022-07-02] MEDS: Loratadine 10 MG TAB PO SCH (09:16)
[2022-07-02] MEDS: Ascorbic Acid 500 mg Chewable Tablet PO SCH (09:16)
[2022-07-02] MEDS: Flecainide 50 MG TAB PO SCH (09:16)
[2022-07-02 11:40] VITALS: BP 175/76
== END 2022-07-02 12:25 | disposition home or self-care (01) | DRG 948 ==
LOC: ERS 03:27 → SURG A 05:30 → OBSVTOIN 09:42
PROVIDERS: ADMIT Specialist; ATTEND Specialist
DX: G89.18 Other acute postprocedural pain (principal); K21.9 Gastro-esophageal reflux disease without esophagitis; E11.9 Type 2 diabetes mellitus without complications; E78.5 Hyperlipidemia, unspecified; E78.00 Pure hypercholesterolemia, unspecified; I10 Essential (primary) hypertension; I48.91 Unspecified atrial fibrillation; Z96.641 Presence of right artificial hip joint; M19.90 Unspecified osteoarthritis, unspecified site; F32.A Depression, unspecified; F41.9 Anxiety disorder, unspecified; M16.12 Unilateral primary osteoarthritis, left hip; Z90.49 Acquired absence of other specified parts of digestive tract; Z98.890 Other specified postprocedural states; Z88.8 Allergy status to other drugs, medicaments and biological substances; Z91.012 Allergy to eggs
CPT/HCPCS: 36415; 36416; 80048; 85025; 99284; G0378; J1815; J1885

== ENCOUNTER 2022-12-10 13:21 | Outpatient (CLI) | payer MEDICARE, BC | END 2022-12-10 13:22 | disposition home or self-care (01) | LOC: BICMAMMO 13:21 | PROVIDERS: ATTEND Internal Medicine Hematology & Oncology | DX: Z12.31 Encounter for screening mammogram for malignant neoplasm of breast (principal); M85.89 Other specified disorders of bone density and structure, multiple sites; Z80.3 Family history of malignant neoplasm of breast; Z91.89 Other specified personal risk factors, not elsewhere classified; Z85.3 Personal history of malignant neoplasm of breast; Z98.890 Other specified postprocedural states | CPT/HCPCS: 77063; 77067; 77080 ==

== ENCOUNTER 2023-01-16 08:08 | Outpatient (CLI) | payer MEDICARE, BC | END 2023-01-16 08:09 | disposition home or self-care (01) | LOC: RAD 08:08 | PROVIDERS: ATTEND Internal Medicine Critical Care Medicine | DX: R06.00 Dyspnea, unspecified (principal) | CPT/HCPCS: 71046 ==

== ENCOUNTER → 2023-12-31 | Day surgery (SDC) | payer MEDICARE, BC | LOC: BICULT 12:22 | PROVIDERS: ATTEND Internal Medicine Hematology & Oncology | PROC: 0H9U3ZX Drainage of Left Breast, Percutaneous Approach, Diagnostic (ICD-10-PCS; principal; 2023-12-31) | DX: C50.812 Malignant neoplasm of overlapping sites of left female breast (principal) | CPT/HCPCS: 19083; 88305; 88341; 88342; 88361; 88374 ==

== ENCOUNTER 2024-02-14 09:32 | Outpatient (CLI) | payer MEDICARE, BC ==
[2024-02-14] MEDS ORDERED: Iopamidol 370 76% 100 ML VIAL ONE (12:38)
== END 2024-02-14 09:33 | disposition home or self-care (01) ==
LOC: NM 09:32
PROVIDERS: ATTEND Internal Medicine Hematology & Oncology
DX: C50.411 Malignant neoplasm of upper-outer quadrant of right female breast (principal); C83.32 Diffuse large B-cell lymphoma, intrathoracic lymph nodes; E07.9 Disorder of thyroid, unspecified
CPT/HCPCS: 71260; 74177; 78306; A9503; Q9967

== ENCOUNTER 2024-02-25 07:52 | Day surgery (SDC) | payer MEDICARE, BC ==
[2024-02-25 08:10] LABS: #Basophils Less than 0.03 10x3/uL (0.0-0.2); #Eosinophils Less than 0.03 10x3/uL (0.0-0.7); %Basophils 0.1 % (0.0-1.0); %Monocytes 2.3 % (0.0-10.0); %Neutrophils 86.2 % (42.0-75.0); Hematocrit 43.8 % (36.0-47.0); Hemoglobin 14.4 g/dL (12.0-16.0); Mean Corpuscular HGB CONC 32.9 g/dL (32.0-36.0); Mean Corpuscular Hemoglobin 31.3 pg (27.0-31.0); Mean Corpuscular Volume 95.2 fL (78.0-98.0); Mean Platelet Volume 10.3 fL (7.4-10.4); Platelet Count 234 10x3/uL (130-400); RBC Distribution Width 12.2 % (11.5-14.5)
[2024-02-25] MEDS ORDERED: Lidocaine 1% w/Epinephrine 1:100K 20 ML VIAL ONE (08:10)
[2024-02-25] MEDS ORDERED: Sodium Bicarbonate 2.5 MEQ/5 ML SDV ONE (08:10)
[2024-02-25] MEDS ORDERED: Sodium Chloride 0.9% 500 ML ONE (08:10)
[2024-02-25 08:23] LABS: INR-International Normal Ratio 0.9; Prothrombin Time 12.4 sec (12.0-14.7)
[2024-02-25] MEDS ORDERED: CEFAZOLIN 1 GM VIAL ONE (09:06)
[2024-02-25] MEDS ORDERED: fentaNYL 50 mcg/mL 1 mL Vial ONE (09:06)
[2024-02-25] MEDS ORDERED: Midazolam HCl 2 mg/2 ml Vial ONE (09:06)
[2024-02-25] MEDS ORDERED: CEFAZOLIN 2 GM VIAL ONE (09:06)
[2024-02-25 12:04] VITALS: BP 136/70
== END 2024-02-25 11:30 | disposition home or self-care (01) ==
LOC: SPEC 07:52
PROVIDERS: ATTEND Internal Medicine Hematology & Oncology
PROC: 0JH83WZ Insertion of Totally Implantable Vascular Access Device into Abdomen Subcutaneous Tissue and Fascia, Percutaneous Approach (ICD-10-PCS; principal; 2024-02-25)
DX: C50.411 Malignant neoplasm of upper-outer quadrant of right female breast (principal)
CPT/HCPCS: 36561; 76937 ×2; 77001 ×2; 85025; 85610; 85730; C1769; C1788; J0690; J1642; J2250; J3010; J7030; 99152; 99153

== ENCOUNTER 2024-02-28 07:50 | Outpatient (CLI) | payer MEDICARE, BC ==
[2024-02-28] MEDS ORDERED: Iopamidol 370 76% 100 ML VIAL ONE (11:30)
== END 2024-02-28 07:51 | disposition home or self-care (01) ==
LOC: CT 07:50
PROVIDERS: ATTEND Internal Medicine Hematology & Oncology
DX: C83.32 Diffuse large B-cell lymphoma, intrathoracic lymph nodes (principal); C50.411 Malignant neoplasm of upper-outer quadrant of right female breast; R93.7 Abnormal findings on diagnostic imaging of other parts of musculoskeletal system
CPT/HCPCS: 70470; Q9967

== ENCOUNTER 2024-06-02 20:11 | Emergency (ER) | payer MEDICARE, BC ==
[2024-06-02] MEDS ORDERED: Lidocaine 10 ML, Aluminum & Magnesium Hydroxide 30 ML SSW SCH (21:00)
[2024-06-02 21:06] LABS: #Basophils 0.05 10x3/uL (0.0-0.2); %Basophils 0.6 % (0.0-1.0); %Eosinophils 1.3 % (0.0-10.0); %Lymphocytes 14.3 % (21.0-51.0); %Monocytes 7.3 % (0.0-10.0); %Neutrophils 76.1 % (42.0-75.0); Hemoglobin 12.4 g/dL (12.0-16.0); Mean Corpuscular HGB CONC 32.6 g/dL (32.0-36.0); Mean Corpuscular Hemoglobin 31.4 pg (27.0-31.0); Mean Corpuscular Volume 96.2 fL (78.0-98.0); Platelet Count 168 10x3/uL (130-400); RBC Distribution Width 13.7 % (11.5-14.5); Red Blood Cell (RBC) Count 3.95 mill/uL (4.20-5.40)
[2024-06-02 21:22] LABS: ALT (SGPT) 9 U/L (Less than 34); AST (SGOT) 16 U/L (11-34); Albumin 4.1 g/dL (3.1-4.5); Alkaline Phosphatase 60 U/L (40-110); Anion Gap 12 mmol/L (10-20); BUN (Urea Nitrogen) 21 mg/dL (9.8-20.1); Bilirubin, Total 0.4 mg/dL (0.3-1.2); Calc. Creatinine Clearance 0 mL/min (70-130); Calcium 10.1 mg/dL (7.8-10.44); Carbon Dioxide 25 mmol/L (23-31); Chloride 108 mmol/L (98-107); Estimated GFR 84; Globulin 2.2 g/dL (2.4-3.5); Glucose 135 mg/dL (83-110); Lipase 31 U/L (8-78); Potassium 4.2 mmol/L (3.5-5.1); Protein, Total 6.3 g/dL (5.8-8.1); Sodium 141 mmol/L (136-145)
[2024-06-02 21:22] LABS: Troponin I Less than 0.010 ng/mL (< 0.028)
[2024-06-02 23:41] LABS: Troponin I Less than 0.010 ng/mL (< 0.028)
== END 2024-06-02 23:55 | disposition home or self-care (01) ==
LOC: ERS 20:11
DX: K21.9 Gastro-esophageal reflux disease without esophagitis (principal); E11.9 Type 2 diabetes mellitus without complications; E78.5 Hyperlipidemia, unspecified; I10 Essential (primary) hypertension; I48.91 Unspecified atrial fibrillation
CPT/HCPCS: 36415; 71045; 80053; 83690; 84484; 85025; 93005; 94760

== ENCOUNTER 2025-01-25 10:32 | Outpatient (CLI) | payer MEDICARE, BC | END 2025-01-25 10:33 | disposition home or self-care (01) | LOC: RAD 10:32 | PROVIDERS: ATTEND Internal Medicine Critical Care Medicine | DX: R06.00 Dyspnea, unspecified (principal); R91.1 Solitary pulmonary nodule | CPT/HCPCS: 71046 ==